=== PATIENT | male | born 1935 | race African-American/Black ===

== ENCOUNTER → 2016-05-28 | Outpatient (CLI) | payer MEDICARE, OTHER | LOC: OD 15:46 | PROVIDERS: ATTEND Family Medicine | DX: J20.9 Acute bronchitis, unspecified (principal) | CPT/HCPCS: 71020 ==

== ENCOUNTER 2016-07-13 19:49 | Observation (INO) | payer MEDICARE, OTHER ==
[2016-07-13] MEDS ORDERED: FENTANYL CITRATE INJ/PF 100 MCG/2 ML AMPUL ONE ×2 (20:57→21:08)
[2016-07-13] MEDS ORDERED: LIDOCAINE 1% INJ-PF (10 MG/ML) 30 ML SDV ONE (21:01)
[2016-07-13] MEDS ORDERED: NORMAL SALINE 1000 ML 1,000 ML IV ONE (21:31)
[2016-07-13] MEDS ORDERED: FENTANYL CITRATE INJ/PF 100 MCG/2 ML AMPUL IV ONE (21:31)
--- NOTE | 2016-07-13 21:32 | ER Document Report ---
[id number] Mode of Arrival: Ambulatory Information source: Patient Notes: 72-year-old male presents with a crush injury to left hand. Patient notes he was working under a car, is fell on his hand and crushed him for approximately 2 hours. Patient denies any other injuries TRAVEL OUTSIDE OF THE [place] IN LAST 30 DAYS: No - HPI Onset: Just prior to arrival Onset/Duration: Sudden Quality of pain: Sharp Severity: Moderate Pain Level: 3 Associated symptoms: Other Exacerbated by: Denies Relieved by: Denies Similar symptoms previously: No Recently seen / treated by doctor: No - Related Data Allergies/Adverse Reactions: Penicillins Allergy (Intermediate, Verified 07/13/16 20:14) Hives Past Medical History - Social History Smoking Status: Never Smoker Cigarette use (# per day): No Chew tobacco use (# tins/day): No Smoking Education Provided: No Family History: Reviewed & Not Pertinent - Past Medical History Cardiac Medical History: Reports: Hx Hypercholesterolemia Denies: Hx Heart Attack, Hx Hypertension Pulmonary Medical History: Denies: Hx Asthma Neurological Medical History: Denies: Hx Cerebrovascular Accident, Hx Seizures GI Medical History: Denies: Hx Hepatitis, Hx Hiatal Hernia, Hx Ulcer Infectious Medical History: Denies: Hx Hepatitis Past Surgical History: Reports: Hx Appendectomy. Denies: Hx Open Heart Surgery , Hx Pacemaker - Immunizations Hx Diphtheria, Pertussis, Tetanus Vaccination: Yes Review of Systems - Review of Systems Notes: REVIEW OF SYSTEMS: CONSTITUTIONAL : Denies fever, chills, or sweats. Denies recent illness. EENT: Denies eye, ear, throat, or mouth pain or symptoms. Denies nasal or sinus congestion or discharge. Denies throat, tongue, or mouth swelling or difficulty swallowing. CARDIOVASCULAR: Denies chest pain. Denies palpitations or racing or irregular heart beat. Denies ankle edema. RESPIRATORY: Denies cough, cold, or chest congestion. Denies shortness of breath, difficulty breathing, or wheezing. GASTROINTESTINAL: Denies abdominal pain or distention. Denies nausea, vomiting , or diarrhea. Denies blood in vomitus, stools, or per rectum. Denies black, tarry stools. Denies constipation. GENITOURINARY: Denies difficulty urinating, painful urination, burning, frequency, blood in urine, or discharge. MUSCULOSKELETAL: Left hand injury SKIN: Laceration to left hand with bleeding HEMATOLOGIC : Denies easy bruising or bleeding. LYMPHATIC: Denies swollen, enlarged glands. NEUROLOGICAL: Denies confusion or altered mental status. Denies passing out or loss of consciousness. Denies dizziness or lightheadedness. Denies headache. Denies weakness or paralysis or loss of use of either side. Denies problems with gait or speech. Denies sensory loss, numbness, or tingling. Denies seizures. PSYCHIATRIC: Denies anxiety or stress. Denies depression, suicidal ideation, or homicidal ideation. ALL OTHER SYSTEMS REVIEWED AND NEGATIVE. Dictation was performed using [employer] recognition software PHYSICAL EXAMINATION: GENERAL: Well-appearing, well-nourished and in moderate acute distress. HEAD: Atraumatic, normocephalic. EYES: Pupils equal round and reactive to light, extraocular movements intact, sclera anicteric, conjunctiva are normal. ENT: Nares patent, oropharynx clear without exudates. Moist mucous membranes. NECK: Normal range of motion, supple without lymphadenopathy LUNGS: Breath sounds clear to auscultation bilaterally and equal. No wheezes rales or rhonchi. HEART: Regular rate and rhythm without murmurs ABDOMEN: Soft, nontender, nondistended abdomen. No guarding, no rebound. No masses appreciated. 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 Normal speech, normal gait. Normal sensory, motor exams PSYCH: Normal mood, normal affect. SKIN: Warm, Dry, normal turgor, no rashes or lesions noted. Physical Exam - Vital signs Vitals: Temp Pulse Resp BP Pulse Ox 97.3 F 111 H 16 115/67 93 07/13/16 19:56 07/13/16 19:56 07/13/16 19:56 07/13/16 19:56 07/13/16 19:56 Course - Re-evaluation Re-evalutation: 07/13/16 21:31 Dr Villegas immediately consulted, he evaluated patient and cauterized bleeders and placed 8 sutures Area was loosely closed dressing placed dr fajardo called 07/13/16 21:37 Dr fajardo will admit to his service, will start ancef tetanus is up to date 07/13/16 23:37 Antibiotics IV fluids have been ordered CPK is pending patient in no distress at this time - Vital Signs Vital signs: Temp Pulse Resp BP Pulse Ox 97.3 F 111 H 16 115/67 93 07/13/16 19:56 07/13/16 19:56 07/13/16 19:56 07/13/16 19:56 07/13/16 19:56 - Laboratory Result Diagrams: 07/13/16 22:03 07/13/16 22:03 Laboratory results interpreted by me: 07/13/16 07/13/16 22:03 22:03 RDW 14.9 H Chloride 110 H - Diagnostic Test Radiology reviewed: Image reviewed, Reports reviewed - No fracture Discharge - Discharge Clinical Impression: Crushing injury of hand Qualifiers: Encounter type: initial encounter Laterality: left Qualified Code(s): S67.22XA - Crushing injury of left hand, initial encounter Laceration of hand Qualifiers: Encounter type: initial encounter Laterality: left Qualified Code(s): S61.412A - Laceration without foreign body of left hand, initial encounter Condition: Stable Disposition: ADMITTED OBSERVATION Admitting Provider: Betzaida Unit Admitted: Surgical Floor
[2016-07-13 22:09] LABS: ABSOLUTE BASOPHILS # (AUTO) 0.1 10^3/uL (0.0-0.2); ABSOLUTE LYMPHOCYTES (AUTO) 1.4 10^3/uL (0.5-4.7); ABSOLUTE MONOCYTES (AUTO) 0.7 10^3/uL (0.1-1.4); ABSOLUTE NEUT (AUTO) 7.7 10^3/uL (1.7-8.2); BASOPHILS % (AUTO) 0.5 % (0-2); EOSINOPHILS % (AUTO) 0.4 % (0-6); HEMATOCRIT 44.4 % (37.9-51.0); HEMOGLOBIN 14.6 g/dL (13.5-17.0); HGB HCT DIFFERENCE -0.6; LYMPHOCYTES % (AUTO) 14.1 % (13-45); MEAN CORPUSCULAR HEMOGLOBIN 27.8 pg (27.0-33.4); MEAN CORPUSCULAR HGB CONC 32.8 g/dL (32.0-36.0); MEAN CORPUSCULAR VOLUME 85 fl (80-97); MONOCYTES % (AUTO) 7.3 % (3-13); RED BLOOD COUNT 5.24 10^6/uL (4.35-5.55); RED CELL DISTRIBUTION WIDTH 14.9 % (11.5-14.0); SEGMENTED NEUTROPHILS % (AUTO) 77.7 % (42-78)
[2016-07-13 22:22] LABS: ALANINE AMINOTRANSFERASE 48 U/L (21-72); ALBUMIN 3.6 g/dL (3.5-5.0); ALKALINE PHOSPHATASE 51 U/L (38-126); ANION GAP 9 (5-19); ASPARTATE AMINO TRANSFERASE 33 U/L (17-59); BLOOD UREA NITROGEN 13 mg/dL (7-20); CALCIUM 9.4 mg/dL (8.4-10.2); CARBON DIOXIDE 25 mmol/L (22-30); CHLORIDE 110 mmol/L (98-107); CREATININE RESULT 1.16 mg/dL (0.52-1.25); GLUCOSE 94 mg/dL (75-110); POTASSIUM 4.1 mmol/L (3.6-5.0); SODIUM 143.5 mmol/L (137-145); TOTAL PROTEIN 6.6 g/dL (6.3-8.2)
[2016-07-13] MEDS ORDERED: CEFAZOLIN 1 GM/D5W RTU 50 ML IV ONE (22:59)
[2016-07-13] MEDS ORDERED: NORMAL SALINE 1000 ML 1,000 ML IV PRN (23:25)
[2016-07-14] MEDS ORDERED: HYDROMORPHONE HCL INJ/PF 2 MG/ML AMPULE IV PRN
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
[2016-07-14] MEDS ORDERED: RINGERS SOLUTION,LACTATED 1,000 ML IV PRN (02:41)
[2016-07-14] MEDS: MORPHINE SULFATE 10 MG/ML INJ IV PRN ×2 (02:48→07:24)
[2016-07-14 08:03] LABS: ABSOLUTE BASOPHILS # (AUTO) 0.1 10^3/uL (0.0-0.2); ABSOLUTE EOSINOPHILS # (AUTO) 0.1 10^3/uL (0.0-0.6); ABSOLUTE LYMPHOCYTES (AUTO) 1.9 10^3/uL (0.5-4.7); ABSOLUTE MONOCYTES (AUTO) 0.5 10^3/uL (0.1-1.4); ABSOLUTE NEUT (AUTO) 3.8 10^3/uL (1.7-8.2); BASOPHILS % (AUTO) 0.8 % (0-2); EOSINOPHILS % (AUTO) 1.1 % (0-6); HEMATOCRIT 41.6 % (37.9-51.0); HEMOGLOBIN 13.6 g/dL (13.5-17.0); HGB HCT DIFFERENCE -0.8; LYMPHOCYTES % (AUTO) 29.5 % (13-45); MEAN CORPUSCULAR HEMOGLOBIN 27.9 pg (27.0-33.4); MEAN CORPUSCULAR HGB CONC 32.7 g/dL (32.0-36.0); MEAN CORPUSCULAR VOLUME 85 fl (80-97); MONOCYTES % (AUTO) 8.6 % (3-13); RED BLOOD COUNT 4.88 10^6/uL (4.35-5.55); RED CELL DISTRIBUTION WIDTH 14.9 % (11.5-14.0); WHITE BLOOD COUNT 6.3 10^3/uL (4.0-10.5)
[2016-07-14 08:07] LABS: PROTHROMBIN TIME 14.4 SEC (11.4-15.4)
[2016-07-14 08:08] LABS: PARTIAL THROMBOPLASTIN TIME 35.8 SEC (23.5-35.8)
[2016-07-14 08:17] LABS: ANION GAP 7 (5-19); BLOOD UREA NITROGEN 12 mg/dL (7-20); CALCIUM 8.9 mg/dL (8.4-10.2); CARBON DIOXIDE 25 mmol/L (22-30); CHLORIDE 111 mmol/L (98-107); CREATININE RESULT 1.13 mg/dL (0.52-1.25); GLUCOSE 73 mg/dL (75-110); POTASSIUM 4.2 mmol/L (3.6-5.0); SODIUM 143.1 mmol/L (137-145)
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
[2016-07-14] MEDS ORDERED: FENTANYL CITRATE INJ/PF 100 MCG/2 ML AMPUL ONE (09:28)
[2016-07-14] MEDS ORDERED: PROPOFOL INJ 200 MG/20 ML VIAL IV ONE (09:28)
[2016-07-14] MEDS ORDERED: MIDAZOLAM 2 MG/2 ML INJ ONE (09:28)
[2016-07-14] MEDS ORDERED: MORPHINE SULFATE 10 MG/ML INJ ONE (09:29)
[2016-07-14] MEDS ORDERED: CEFAZOLIN INJ 1 GM VIAL ONE (09:59)
[2016-07-14] MEDS ORDERED: BUPIVACAINE HCL 0.25 % INJ/PF (2.5 MG/1 ML) 30 ML VIAL ONE (10:00)
[2016-07-14] MEDS ORDERED: MORPHINE SULFATE 10 MG/ML INJ IV PRN (10:10)
[2016-07-14] MEDS ORDERED: FENTANYL CITRATE INJ/PF 100 MCG/2 ML AMPUL IV PRN ×3 (10:10)
[2016-07-14] MEDS ORDERED: ONDANSETRON HCL INJ/PF 4 MG/2 ML SDV IV PRN (10:10)
[2016-07-14] MEDS ORDERED: DIPHENHYDRAMINE HCL 50 MG/ML VIAL IV PRN (10:10)
--- NOTE | 2016-07-14 10:21 | Operative Report ---
Operative Report DATE OF SURGERY: 07/14/16 PREOPERATIVE DIAGNOSIS: Complex left hand laceration OPERATION: Irrigation debridement of wound. Neuro lysis of left thumb ulnar neurovascular bundle and right index radial neurovascular bundle. Delayed primary closure. SURGEON: CASTRO LIM ANESTHESIA: GA TISSUE REMOVED OR ALTERED: No specimen. ESTIMATED BLOOD LOSS: minimal PROCEDURE: The patient presented to the emergency room with a bleeding wound which was cauterized. Preoperative concern was that this represented the digital neurovascular bundle and then cauterization was of the vascular, neurologic structures within. With the patient supine on the operative table left hand. His pre-scrubbed because its grossly contaminated with dirt. Subsequent prepped and draped in a sterile fashion. The wound is examined. Approximate 4 inch longitudinal incision that runs along the webspace between the thumb and the index finger. Is largely a degloving injury over the index aspect of this wound. The wound is debrided of all nonviable and discolored tissue. The radial neurovascular bundle to the index finger is identified and traced on either side of the lumbrical and found to be intact. Likewise, the neurovascular bundle to the ulnar aspect of the thumb is identified and found to be intact. At this point. Wound is danna irrigated again. A quarter-inch iodoform gauze was placed deep into the webspace. The skin is then reapproximated using interrupted 3-0 nylon suture. Dressing is applied and the patient's returned to the PACU in satisfactory condition.
--- NOTE | 2016-07-14 10:43 | EKG REPORT ---
SEVERITY:- OTHERWISE NORMAL ECG - SINUS RHYTHM LOW VOLTAGE IN FRONTAL LEADS : Confirmed by: Jessica Deluna 14-Jul-2016 10:43:27
--- NOTE | 2016-07-14 10:44 | EKG REPORT ---
SEVERITY:- OTHERWISE NORMAL ECG - SINUS RHYTHM LOW VOLTAGE IN FRONTAL LEADS : Confirmed by: Jessica Deluna 14-Jul-2016 10:43:47
[2016-07-14] MEDS: OXYCODONE HCL IR 5 MG TABLET PO PRN ×2 (15:15→21:11)
[2016-07-14] MEDS: CEFAZOLIN 2 GM/D5W RTU 2 GM/50 ML RTUPB IV SCH (16:40)
[2016-07-15] MEDS: CEFAZOLIN 2 GM/D5W RTU 2 GM/50 ML RTUPB IV SCH ×2 (03:01→09:32)
[2016-07-15] MEDS: OXYCODONE HCL IR 5 MG TABLET PO PRN ×2 (03:01→09:34)
--- NOTE | 2016-07-15 07:16 | Physician Advisory Note ---
Physician Advisor ProgressNote .: Pursuant to the plan for [facility], I have reviewed the medical record for this patient. Physician Advisor Statement: Status: 72yo with crush/complex lac injury to non-dominant Lt hand, degloving type over index finger area, requiring 8 sutures + cautery to control bleeding in ED 07/13 PM, but wound still grossly contaminated w/dirt, needed formal irrigation debridement in OR, which was done promptly on 07/14 AM. Pt given LR @150, Ancef IV q8h, oxycodone prn. Since then, pt w/recurrent tachycardia at times as high as 103. If attending documentation explicitly documents the clinical reasons pt could not be safely d/c'd on 07/14 PM (concerns for hand infection risks high?, needing monitoring for viability of fingers?, unstable HR?, ...), but rather requiring a 2nd MN of hospital care & monitoring to protect pt's health, safety , & medical condition (as opposed to, for example, keeping pt a 2nd MN for reasons of pt/physician convenience - which would be highly unlikely by this dr but auditors won't assume so), pt may qualify for change to Inpt status this AM , whether or not he is then able to be d/c'd home later today. Thanks for your help with documentation accuracy/specificity improvement! Pamela Rainey MD [facility] Physician Advisor, Fellow of Hospital Medicine
[2016-07-15 13:52] VITALS: BP 118/82
== END 2016-07-15 14:00 | disposition home or self-care (01) ==
LOC: ER 19:49 → EH 22:56 → UNDOADMOB 22:56 → EH 07-14 01:47 → 4N 07-14 01:47 → EH 07-14 06:02
PROVIDERS: ADMIT Orthopaedic Surgery; ATTEND Orthopaedic Surgery
PROC: 0JBJ0ZZ Excision of Right Hand Subcutaneous Tissue and Fascia, Open Approach (ICD-10-PCS; principal; 2016-07-13)
PROC: 0JQJ0ZZ Repair Right Hand Subcutaneous Tissue and Fascia, Open Approach (ICD-10-PCS; 2016-07-13)
PROC: 3E033GC Introduction of Other Therapeutic Substance into Peripheral Vein, Percutaneous Approach (ICD-10-PCS; 2016-07-13)
PROC: 3E033GC Introduction of Other Therapeutic Substance into Peripheral Vein, Percutaneous Approach (ICD-10-PCS; 2016-07-13)
PROC: 3E033GC Introduction of Other Therapeutic Substance into Peripheral Vein, Percutaneous Approach (ICD-10-PCS; 2016-07-13)
DX: S67.22XA Crushing injury of left hand, initial encounter (principal); S61.412A Laceration without foreign body of left hand, initial encounter; W20.8XXA Other cause of strike by thrown, projected or falling object, initial encounter; E78.5 Hyperlipidemia, unspecified
CPT/HCPCS: 96376; 99285; 96361; 96375; 96365; 36415 ×2; 82550; 85025 ×2; 85610; 85730; 80048; 80053; 71010; 73130; 73110; 93005; 93010; 11043; 13131; J2250; J0690 ×4; J3010 ×2; J3490; J2270; J1170; J7030; J7120; J2704; A9270 ×2; 00400; G0378

== ENCOUNTER → 2016-12-26 | Outpatient (CLI) | payer MEDICARE, OTHER ==
--- NOTE | 2016-12-26 15:58 | RADIOLOGY REPORT (SQ) ---
EXAM DESCRIPTION: CHEST PA/LATERAL COMPLETED DATE/TIME: 12/26/2016 12:18 pm REASON FOR STUDY: HYPERLIPIDEMIA, UNSPECIFIED COMPARISON: 07/14/2016 EXAM PARAMETERS: NUMBER OF VIEWS: two views TECHNIQUE: Digital Frontal and Lateral radiographic views of the chest acquired. RADIATION DOSE: NA LIMITATIONS: none FINDINGS: LUNGS AND PLEURA: No opacities, masses or pneumothorax. No pleural effusion. MEDIASTINUM AND HILAR STRUCTURES: No masses or contour abnormalities. HEART AND VASCULAR STRUCTURES: Heart normal size. No evidence for failure. BONES: No acute findings. HARDWARE: None in the chest. OTHER: No other significant finding. IMPRESSION: NO SIGNIFICANT RADIOGRAPHIC FINDING IN THE CHEST. TECHNICAL DOCUMENTATION: JOB ID: [id number] [employer]- All Rights Reserved
== END ==
LOC: OD 11:46
PROVIDERS: ATTEND Family Medicine
DX: E78.5 Hyperlipidemia, unspecified (principal)
CPT/HCPCS: 71020

== ENCOUNTER → 2017-07-04 | Outpatient (CLI) | payer MEDICARE, OTHER ==
--- NOTE | 2017-07-04 09:37 | RADIOLOGY REPORT (SQ) ---
EXAM DESCRIPTION: KUB COMPLETED DATE/TIME: 07/04/2017 9:24 am REASON FOR STUDY: DYSURIA COMPARISON: None. NUMBER OF VIEWS: One view. TECHNIQUE: Supine radiographic image of the abdomen acquired. LIMITATIONS: None. FINDINGS: BOWEL GAS PATTERN: Normal bowel gas pattern. No dilated loops. CALCIFICATIONS: 3 mm calcified density in the midline overlying the urinary bladder. No renal calcul i identified. SOFT TISSUES: No gross mass or suggestion of organomegaly. HARDWARE: None. BONES: No bone lesions or fracture. OTHER: No other significant finding. IMPRESSION: Possible small bladder stone.
== END ==
LOC: OD 09:09
PROVIDERS: ATTEND Physician Assistant
DX: R30.0 Dysuria (principal)
CPT/HCPCS: 74018

== ENCOUNTER → 2017-07-30 | Outpatient (CLI) | payer MEDICARE, OTHER ==
--- NOTE | 2017-07-30 10:07 | RADIOLOGY REPORT (SQ) ---
EXAM DESCRIPTION: CHEST PA/LATERAL COMPLETED DATE/TIME: 07/30/2017 8:24 am REASON FOR STUDY: COUGH COMPARISON: 2017. TECHNIQUE: Frontal and lateral radiographic views of the chest acquired. NUMBER OF VIEWS: Two view. LIMITATIONS: None. FINDINGS: LUNGS AND PLEURA: Slight chronic hyperinflation but no developing opacities. No pneumotho rax. No evidence of failure or pneumonia. MEDIASTINUM AND HILAR STRUCTURES: No masses or contour abnormalities. HEART AND VASCULAR STRUCTURES: Heart normal size. No evidence for failure. BONES: No acute findings. HARDWARE: None in the chest. OTHER: No other significant finding. IMPRESSION: Stable chest is without acute cardiopulmonary disease or suspicious opacities. No evide nce of failure or pneumonia. TECHNICAL DOCUMENTATION: JOB ID: [id number] [employer]- All Rights Reserved Reading location - IP/workstation name: [email or web address]
--- NOTE | 2017-07-30 13:34 | RADIOLOGY REPORT (SQ) ---
EXAM DESCRIPTION: KUB COMPLETED DATE/TIME: 07/30/2017 10:21 am REASON FOR STUDY: CALCULUS IN BLADDER R05 COUGH N21.0 CALCULUS IN BLADDER COMPARISON: 07/04/2017. NUMBER OF VIEWS: One view. TECHNIQUE: AP supine digital radiograph of the abdomen. LIMITATIONS: None. FINDINGS: CALCIFICATIONS: RIGHT KIDNEY: None. RIGHT URETER: No calcifications in the expected location of the ureter. LEFT KIDNEY: None. LEFT URETER: No calcifications in the expected location of the ureter. BLADDER: Previously seen small calcification in the mid pelvis no longer present. Incidental calcifi ed phleboliths. BOWEL GAS PATTERN AND SOFT TISSUES: Normal bowel gas pattern. No masses or organomegaly. BONES: No acute fracture. No worrisome bone lesions. OTHER: None. IMPRESSION: NO CALCIFICATIONS IDENTIFIED IN THE EXPECTED LOCATION OF THE URINARY SYSTEM. TECHNICAL DOCUMENTATION: JOB ID: [id number] [employer]- All Rights Reserved Reading location - IP/workstation name: [email or web address]
== END ==
LOC: OD 08:17
PROVIDERS: ATTEND Physician Assistant
DX: N21.0 Calculus in bladder (principal); R05 Cough
CPT/HCPCS: 71046; 74018

== ENCOUNTER 2017-11-05 09:21 | Observation (INO) | payer MEDICARE, OTHER ==
[2017-10-29 11:13] LABS: HEMATOCRIT 47.1 % (37.9-51.0); HEMOGLOBIN 15.5 g/dL (13.5-17.0); MEAN CORPUSCULAR HGB CONC 32.9 g/dL (32.0-36.0); MEAN CORPUSCULAR VOLUME 85 fl (80-97); PLATELET COUNT 198 10^3/uL (150-450); RED BLOOD COUNT 5.53 10^6/uL (4.35-5.55); RED CELL DISTRIBUTION WIDTH 14.7 % (11.5-14.0); WHITE BLOOD COUNT 5.1 10^3/uL (4.0-10.5)
[2017-10-29 11:36] LABS: ANION GAP 10 (5-19); BLOOD UREA NITROGEN 13 mg/dL (7-20); CALCIUM 10.1 mg/dL (8.4-10.2); CARBON DIOXIDE 29 mmol/L (22-30); CHLORIDE 106 mmol/L (98-107); GLUCOSE 87 mg/dL (75-110); POTASSIUM 5.1 mmol/L (3.6-5.0); SODIUM 145.1 mmol/L (137-145)
--- NOTE | 2017-10-29 22:38 | EKG REPORT ---
SEVERITY:- OTHERWISE NORMAL ECG - SINUS RHYTHM LOW VOLTAGE IN FRONTAL LEADS : Confirmed by: Candice Adams MD 29-Oct-2017 22:37:16
[~2017-11-05 09:21] MED LIST: AMPICILLIN SODIUM/SULBACTAM NA 3 GM in NORMAL SALINE 100 ML IV SCH; DEXTROSE 5%-LACTATED RINGERS 1,000 ML IV PRN; GENTAMICIN SULFATE 200 MG in DEXTROSE 5%-WATER 100 ML IV PRN; LACTATED RINGERS 1000 ML IV PRN; LIDOCAINE 0.5% INJ-PF (5 MG/ML) 50 ML SDV SUBCUT PRN; VANCOMYCIN HCL 1,000 MG in DEXTROSE 5%-WATER 250 ML IV PRN
[2017-11-05] MEDS ORDERED: FENTANYL CITRATE INJ/PF 100 MCG/2 ML AMPUL ONE (11:22)
[2017-11-05] MEDS ORDERED: PROPOFOL INJ 200 MG/20 ML VIAL IV ONE (11:22)
[2017-11-05] MEDS ORDERED: MIDAZOLAM 2 MG/2 ML INJ ONE (11:22)
[2017-11-05] MEDS ORDERED: BUPIVACAINE HCL 0.5%-EPI 1:200000 INJ/PF 30 ML VIAL ONE (11:28)
[2017-11-05] MEDS ORDERED: GENTAMICIN SULFATE INJ 80 MG/2 ML VIAL ONE (11:28)
[2017-11-05] MEDS ORDERED: BACITRACIN INJ 50,000 UNIT VIAL ONE (11:38)
[2017-11-05] MEDS ORDERED: DEXAMETHASONE SOD PHOSPHATE INJ 4 MG/1 ML VIAL ONE (13:19)
[2017-11-05] MEDS ORDERED: PHENYLEPHRINE HCL INJ/PF 10 MG/1 ML SDV ONE (13:19)
[2017-11-05] MEDS ORDERED: ONDANSETRON HCL INJ/PF 4 MG/2 ML SDV ONE (13:19)
[2017-11-05] MEDS ORDERED: GLYCOPYRROLATE 1 MG/5 ML SYRINGE ONE (13:19)
[2017-11-05] MEDS: FENTANYL CITRATE INJ/PF 100 MCG/2 ML AMPUL ONE ×2 (15:30→15:35)
[2017-11-05] MEDS ORDERED: ACETAMINOPHEN 325 MG TABLET PO PRN (15:43)
[2017-11-05] MEDS ORDERED: OXYCODONE-ACETAMINOPHEN 5-325 MG TABLET PO PRN ×2 (15:45→16:10)
[2017-11-05] MEDS ORDERED: DEXTROSE 5%-1/2 NORMAL SALINE 1,000 ML IV PRN (15:47)
[2017-11-05] MEDS ORDERED: OXYCODONE HCL IR 5 MG TABLET PO PRN (16:10)
[2017-11-05] MEDS ORDERED: DIPHENHYDRAMINE HCL 50 MG/ML VIAL IV PRN (16:15)
[2017-11-05] MEDS ORDERED: ONDANSETRON HCL INJ/PF 4 MG/2 ML SDV IV PRN (16:15)
[2017-11-05] MEDS ORDERED: FENTANYL CITRATE INJ/PF 100 MCG/2 ML AMPUL IV PRN ×3 (16:15)
--- NOTE | 2017-11-05 18:24 | Operative Report ---
Operative Report DATE OF SURGERY: 11/05/17 POSTOPERATIVE DIAGNOSIS: organic erectile dysfunction OPERATION: insertion 3-piece inflatable penile prosthesis SURGEON: Dominick ANESTHESIA: GA TISSUE REMOVED OR ALTERED: none COMPLICATIONS: none ESTIMATED BLOOD LOSS: minimal INTRAOPERATIVE FINDINGS: erectile dysfunction PROCEDURE: After Oneal was identified in the preop holding area, he was brought to the OR. A time out was performed where the correct patient and procedure was confirmed. He was then given general anesthesia. He was then prepped with Chloraprep and draped in the routine sterile manner. A 14 [place] law catheter was inserted and 10cc was instilled in the balloon.\ Next, a 3 cm incision was made in the median raphe of the scrotum and dissection was carried out with blunt and sharp dissection. The left corporal body was identified. Marking autures of 2-0 PDS were placed on either side of the proposed incision and then an 11 bladed knife was used to incise through the tunica albuginea. The corporal space was dilated with Hegar dilators distally and proximally from 8FR to 14 Fr. Measurements were taken and were 12 cm distally and 8 cm proximally. The corporal space was then irrigated with antibiotic irrigation. The other side was done in a similar manner. There was some scarring in the right corporal space, which required additional dilation. The distal and proximal measurements on the right side were the same. An 18 cm cylinder with a 2 cm rear tip editor producer and a 65cc resevior and pump were prepped according to manufactor's specifications. A Lucy tool was then used to guide placement of the cylinders such that the Hussein needle exited from the middle of the glans penis on each side. The distal end was positioned without tension or buckling. An artificial erection was then created using a surogate resevior, and the erection showed good placment of the cylinders with symmetrical expansion. The previously placed 2-0 PDS sutures were tied to close the corporal incisions. A small incision was made in the suprapubic area and dissection was carried down to the level of the fascia with blunt and sharp dissection. The fascia was opened in a vertical direction. Dissection was carried out beneath the rectus muscle in the extraperineal space on the left side to accomodate the resevior. A total of 60 cc of sterile saline was used to inflate the reservior. There wasn't any back pressure. The fascial incision was closed with interrupted 1-0 PDS. The tubing from the reservior was passed from the upper incision through the inguinal canal into the scrotum with a tonsil hemostat. Excess tubing was removed and quick connectors were used to join the reservior tubing to the pump. The pump was then positioned in a dependant position in the lower right scrotal sac. The deflate button was positioned anteriorly. The tubing was covered with surrounding tissue that was tacked in place with interrupted 3-0 chromic sutures. The scrotal incision was closed with a running suture of 4-0 chromic. The suprapubic incision was closed with a subcuticular suture of 4-0 vicryl. Dermabond was applied to the incisions and mikhail dressing was used to wrap the penis. Mesh underware was placed over fluff dressings. All needle, sponge, and instrument counts were normal
[2017-11-05] MEDS ORDERED: VANCOMYCIN HCL 1,000 MG in DEXTROSE 5%-WATER 250 ML IV ONE (23:00)
[2017-11-06] MEDS ORDERED: MORPHINE SULFATE 10 MG/ML INJ ONE (07:30)
--- NOTE | 2017-11-06 07:56 | PDOC DISCHARGE SUMMARY ---
General - Admit/Disc Date/PCP Admission Date/Primary Care Provider: BRYAN DE LEÓN MD Discharge Date: 11/06/17 - Additional Information Discharge Diet: Regular Discharge Activity: No Driving, No Lifting Over 10 Pounds, No tub bath - limited activity over the next week, wear supportive briefs, ice pack to scrotum x 48 hours, take a stool softener daily,, Other - limited activity over the next 7 days. take a stool softener. may shower, wear supportive briefs, ice pack to scrotum for the next 48 hours Home Medications: Acyclovir [Acyclovir 400 mg Tablet] 400 mg PO DAILY 07/14/16 Aspirin [Aspirin 81 mg Chewable Tablet] 81 mg PO DAILY 07/14/16 Ezetimibe [Zetia] 10 mg PO DAILY 07/14/16 Sildenafil Citrate [Viagra] 100 mg PO DAILYP PRN 07/14/16 History of Present Illness Patient complains of: erectile dysfunction History of Present Illness: JUANITA YANG is a 82 year old male Mr. Yang had insertion of an inflatable penile prosthesis on the day of admission. He is afebrile and tolerating a normal diet. He will be discharged for further follow-up as an outpatient. I advised him to limit activity over the next week and to wear supportive briefs. I advised ice pack to the scrotum over the next 48 hours. I also advised him to take a stool softener. I will see him again in 4 weeks and instruct him how to use his prosthesis. Hospital Course Hospital Course: He had an uncomplicated postoperative course. He will be discharged for further follow-up as an outpatient. Physical Exam Vital Signs: Temp Pulse Resp BP Pulse Ox 98.2 F 82 18 103/67 93 11/05/17 22:40 11/05/17 22:40 11/05/17 22:40 11/05/17 22:40 11/05/17 22:40 Intake & Output 11/05/17 11/06/17 11/07/17 06:59 06:59 06:59 Intake Total 2736 Output Total 800 Balance 1936 Weight 70.2 kg General appearance: PRESENT: mild distress Exam: His penis appears normal postop. He does not have significant scrotal swelling. There is no active bleeding or sign of infection. Results Laboratory Results: 10/29/17 10:43 11/05/17 10:07 11/05/17 10:07 Potassium 4.6 Qualifiers - * PATIENT BEING DISCHARGED WITH ANY OF THE FOLLOWING DIAGNOSIS: No VTE patient discharged on overlapping Therapy?: No Reason(s) for not prescribing Overlap Therapy:: Not indicated - risk of post op bleeding Plan Discharge Plan: He can go home. He may resume a normal diet. Limit activity for the next week. He may resume his home meds. Time Spent: Less than 30 Minutes
[2017-11-06 08:14] VITALS: BP 99/60
[2017-11-06] MEDS ORDERED: ACYCLOVIR 200 MG CAPSULE PO SCH (10:00)
[2017-11-06] MEDS ORDERED: EZETIMIBE 10 MG TABLET PO SCH (10:00)
== END 2017-11-06 10:35 | disposition home or self-care (01) ==
LOC: OROUT 09:21 → INOR 09:22 → 4S 17:52 → OROUT 11-06 11:04
PROVIDERS: ADMIT Urology; ATTEND Urology
PROC: 0VUS0JZ Supplement Penis with Synthetic Substitute, Open Approach (ICD-10-PCS; principal; 2017-11-05 12:00)
DX: N52.9 Male erectile dysfunction, unspecified (principal); Z87.891 Personal history of nicotine dependence; Z79.82 Long term (current) use of aspirin; Z79.899 Other long term (current) drug therapy
CPT/HCPCS: 54405; C1813; 36415; 80048; 84132; 85027; 93005; 93010; 938; G0378; G0379; J1100; J1580; J2250; J2270; J2370; J2405; J2704; J3010; J3370; J3490; J7060

== ENCOUNTER 2020-04-09 14:37 | Inpatient (IN) | payer MEDICARE, OTHER ==
--- NOTE | 2020-04-09 14:53 | ER Document Report ---
ED Medical Screen (RME) - General Stated Complaint: CONGESTION, FEVER Time Seen by Provider: 04/09/20 14:46 Primary Care Provider: BRYAN DE LEÓN MD [Primary Care Provider] - Follow up as needed Mode of Arrival: Ambulatory Information source: Patient Notes: HPI; 84-year-old male past medical history significant for hypertension presents to the emergency room complaining of a cough, generalized weakness, subjective fever for the past 3 days. Denies chest pain or shortness of breath. No nausea, vomiting, no diarrhea. No known ill contacts. No medications for symptoms. No COVID-19 exposure. PE: Alert and oriented x3. Lungs: Clear to auscultation without rales, rhonchi, wheezes. Heart: Tachycardic without murmurs, rubs, gallops. I have greeted and performed a rapid initial assessment of this patient. A comprehensive ED assessment and evaluation of the patient, analysis of test results and completion of the medical decision making process will be conducted by additional ED providers. I have specifically instructed the patient or family members with the patient to immediately return to any nursing staff should anything change in the patient's condition or with their chief complaint. TRAVEL OUTSIDE OF THE [place] IN LAST 30 DAYS: No - Related Data Allergies/Adverse Reactions: Penicillins Allergy (Intermediate, Verified 11/05/17 09:50) Hives Past Medical History - Past Medical History Cardiac Medical History: Reports: Hx Coronary Artery Disease - HIGH CHOLESTEROL, Hx Hypercholesterolemia Denies: Hx Congestive Heart Failure, Hx Heart Attack, Hx Hypertension Pulmonary Medical History: Denies: Hx Asthma, Hx Bronchitis, Hx COPD, Hx Pneumonia, Hx Tuberculosis Neurological Medical History: Denies: Hx Cerebrovascular Accident, Hx Seizures, Hx Parkinson's Disease Renal/ Medical History: Denies: Hx Benign Prostatic Hyperplasia, Hx End Stage Renal Disease, Hx Kidney Stones GI Medical History: Denies: Hx Cirrhosis, Hx Gastroesophageal Reflux Disease, Hx Hepatitis, Hx Hiatal Hernia, Hx Ulcer Musculoskeltal Medical History: Denies Hx Arthritis, Denies Hx Multiple Sclerosis Psychiatric Medical History: Denies: Hx Bipolar Disorder, Hx Depression, Hx Schizophrenia Infectious Medical History: Denies: Hx Hepatitis Past Surgical History: Reports: Hx Appendectomy. Denies: Hx Open Heart Surgery, Hx Pacemaker - Immunizations Hx Diphtheria, Pertussis, Tetanus Vaccination: Yes Physical Exam - Vital signs Vitals: Temp Pulse Resp BP Pulse Ox 98.9 F 108 H 18 126/89 H 92 04/09/20 14:43 04/09/20 14:43 04/09/20 14:43 04/09/20 14:43 04/09/20 14:43 Course - Vital Signs Vital signs: Temp Pulse Resp BP Pulse Ox 98.9 F 108 H 18 126/89 H 92 04/09/20 14:43 04/09/20 14:43 04/09/20 14:43 04/09/20 14:43 04/09/20 14:43 Doctor's Discharge - Discharge Referrals: BRYAN DE LEÓN MD [Primary Care Provider] - Follow up as needed
[2020-04-09 15:45] LABS: ABSOLUTE LYMPHOCYTES (AUTO) 0.7 10^3/uL (0.5-4.7); ABSOLUTE MONOCYTES (AUTO) 0.5 10^3/uL (0.1-1.4); BASOPHILS % (AUTO) 0.6 % (0-2); HEMATOCRIT 47.6 % (37.9-51.0); HEMOGLOBIN 15.8 g/dL (13.5-17.0); LYMPHOCYTES % (AUTO) 16.9 % (13-45); MEAN CORPUSCULAR HEMOGLOBIN 27.8 pg (27.0-33.4); MEAN CORPUSCULAR HGB CONC 33.2 g/dL (32.0-36.0); MEAN CORPUSCULAR VOLUME 84 fl (80-97); MONOCYTES % (AUTO) 12.2 % (3-13); PLATELET COUNT 151 10^3/uL (150-450); RED BLOOD COUNT 5.68 10^6/uL (4.35-5.55); RED CELL DISTRIBUTION WIDTH 13.8 % (11.5-14.0); SEGMENTED NEUTROPHILS % (AUTO) 70.3 % (42-78); TOTAL CELLS COUNTED % (AUTO) 100 %; WHITE BLOOD COUNT 4.2 10^3/uL (4.0-10.5)
--- NOTE | 2020-04-09 15:51 | RADIOLOGY REPORT (SQ) ---
EXAM DESCRIPTION: CHEST SINGLE VIEW IMAGES COMPLETED DATE/TIME: 04/09/2020 3:06 pm REASON FOR STUDY: cough COMPARISON: 07/31/2015 EXAM PARAMETERS: NUMBER OF VIEWS: One view. TECHNIQUE: Single frontal radiographic view of the chest acquired. RADIATION DOSE: NA LIMITATIONS: None. FINDINGS: LUNGS AND PLEURA: There appears to be a degree of atelectasis versus consolidation of the right upper lobe and left lower lobe. No focal consolidation, pleural effusion, or pneumothorax. MEDIASTINUM AND HILAR STRUCTURES: No masses. Contour normal. HEART AND VASCULAR STRUCTURES: Heart normal in size. Normal vasculature. BONES: No acute findings. HARDWARE: None in the chest. OTHER: No other significant finding. IMPRESSION: In the appropriate clinical setting, findings are consistent with developing multi lobar pneumonia. TECHNICAL DOCUMENTATION: JOB ID: [id number] 2010 [employer]- All Rights Reserved Reading location - IP/workstation name: [email or web address]
[2020-04-09 15:54] LABS: APPEARANCE,URINE SLIGHTLY-CLOUDY; BILIRUBIN,URINE NEGATIVE (NEGATIVE); COLOR,URINE YELLOW; GLUCOSE, URINE NEGATIVE (NEGATIVE); KETONES,URINE 20 mg/dL (NEGATIVE); LEUKOCYTE ESTERASE,URINE NEGATIVE (NEGATIVE); NITRITE,URINE NEGATIVE (NEGATIVE); PROTEIN,URINE 100 mg/dL (NEGATIVE); URINE SPECIFIC GRAVITY 1.023; UROBILINOGEN,URINE NEGATIVE mg/dL (<2.0)
[2020-04-09 16:05] LABS: ALBUMIN 3.8 g/dL (3.5-5.0); ALKALINE PHOSPHATASE 49 U/L (38-126); ANION GAP 9 (5-19); ASPARTATE AMINO TRANSFERASE 72 U/L (17-59); BILIRUBIN,DIRECT 0.2 mg/dL (0.0-0.4); BLOOD UREA NITROGEN 12 mg/dL (7-20); CALCIUM 8.6 mg/dL (8.4-10.2); CARBON DIOXIDE 29 mmol/L (22-30); CHLORIDE 96 mmol/L (98-107); GLUCOSE 95 mg/dL (75-110); POTASSIUM 4.5 mmol/L (3.6-5.0)
[2020-04-09] MEDS ORDERED: ACETAMINOPHEN 325 MG TABLET PO ONE (18:24)
--- NOTE | 2020-04-09 18:29 | ER Document Report ---
ED General - General Chief Complaint: Congestion Stated Complaint: CONGESTION, FEVER Time Seen by Provider: 04/09/20 14:46 Primary Care Provider: BRYAN DE LEÓN MD [Primary Care Provider] - Follow up as needed Mode of Arrival: Ambulatory TRAVEL OUTSIDE OF THE [place] IN LAST 30 DAYS: No - HPI Notes: Patient is an 84-year-old male presents emergency department for evaluation of fever, cough, shortness of breath. Symptoms of been ongoing for about a week. He is also had multiple episodes of diarrhea, he states for today. He denies any anosmia, has had no nasal congestion. Dry and hacking cough. He denies any pain. His is recently diagnosed with Covid pneumonia. - Related Data Allergies/Adverse Reactions: Penicillins Allergy (Intermediate, Verified 04/09/20 16:49) Hives Home Medications: asa, viagara, montelukast, tobradex, flonase, atorvastatin Past Medical History - General Information source: Patient - Social History Smoking Status: Former Smoker Chew tobacco use (# tins/day): No Frequency of alcohol use: None Drug Abuse: None Family History: Reviewed & Not Pertinent Patient has homicidal ideation: No - Past Medical History Cardiac Medical History: Reports: Hx Hypercholesterolemia Denies: Hx Congestive Heart Failure, Hx Heart Attack, Hx Hypertension Pulmonary Medical History: Denies: Hx Asthma, Hx Bronchitis, Hx COPD, Hx Pneumonia, Hx Tuberculosis Neurological Medical History: Denies: Hx Cerebrovascular Accident, Hx Seizures, Hx Parkinson's Disease Renal/ Medical History: Denies: Hx Benign Prostatic Hyperplasia, Hx End Stage Renal Disease, Hx Kidney Stones GI Medical History: Denies: Hx Cirrhosis, Hx Gastroesophageal Reflux Disease, Hx Hepatitis, Hx Hiatal Hernia, Hx Ulcer Musculoskeletal Medical History: Denies Hx Arthritis, Denies Hx Multiple S clerosis Psychiatric Medical History: Denies: Hx Bipolar Disorder, Hx Depression, Hx Schizophrenia Infectious Medical History: Denies: Hx Hepatitis Past Surgical History: Reports: Hx Appendectomy. Denies: Hx Open Heart Surgery, Hx Pacemaker - Immunizations Hx Diphtheria, Pertussis, Tetanus Vaccination: Yes Hx Pneumococcal Vaccination: 05/26/16 Review of Systems - Review of Systems Constitutional: See HPI EENT: See HPI Cardiovascular: No symptoms reported Respiratory: See HPI Gastrointestinal: See HPI Genitourinary: No symptoms reported Musculoskeletal: No symptoms reported Skin: No symptoms reported Neurological/Psychological: No symptoms reported -: Yes All other systems reviewed and negative Physical Exam - Vital signs Vitals: Temp Pulse Resp BP Pulse Ox 98.9 F 108 H 18 126/89 H 92 04/09/20 14:43 04/09/20 14:43 04/09/20 14:43 04/09/20 14:43 04/09/20 14:43 - Notes Notes: Vital signs reviewed, please refer to chart. Head is normocephalic, atraumatic. Pupils equal round, reactive to light. Neck is supple without meningismus. Heart is regular rate and rhythm. Lungs reveal diminished breath sounds but no wheezes, rales, rhonchi. Abdomen is soft, nontender, normoactive bowel sounds throughout. Extremities without cyanosis, clubbing. Posterior calves are nontender. Peripheral pulses are equal. Skin is warm and dry. Patient is awake, alert, neurological exam is nonfocal. Course - Re-evaluation Re-evalutation: 04/09/20 18:25 Patient presents emergency department for evaluation. He is brought in via triage, had laboratory investigations as ordered. Chest x-ray reveals findings consistent with multilobar pneumonia. I actually did have the Provigil taken care of this man's earlier today. She is in fact Covid positive. I strongly suspect this in this patient. I will speak to primary care about admission. 04/09/20 18:31 Dr. Valdivia, on for Dr. De León, will admit the patient for further care. - Vital Signs Vital signs: Temp Pulse Resp BP Pulse Ox 98.9 F 108 H 18 126/89 H 92 04/09/20 14:43 04/09/20 14:43 04/09/20 14:43 04/09/20 14:43 04/09/20 14:43 - Laboratory Result Diagrams: 04/09/20 15:25 04/09/20 15:25 Laboratory results interpreted by me: 04/09/20 04/09/20 04/09/20 15:25 15:25 15:25 RBC 5.68 H Sodium 133.8 L Chloride 96 L AST 72 H Urine Protein 100 H Urine Ketones 20 H Urine Blood MODERATE H - Diagnostic Test Radiology reviewed: Image reviewed, Reports reviewed Radiology results interpreted by me: 04/09/20 18:26 Chest X-Ray 04/09/20 14:49 IMPRESSION: In the appropriate clinical setting, findings are consistent with developing multi lobar pneumonia. Discharge - Discharge Clinical Impression: COVID-19, Multilobar lung infiltrate Condition: Stable Disposition: ADMITTED INPATIENT Admitting Provider: Iron Valdivia covering Unit Admitted: IMCU Referrals: BRYAN DE LEÓN MD [Primary Care Provider] - Follow up as needed
[2020-04-09] MEDS ORDERED: ACETAMINOPHEN 325 MG TABLET PO PRN (19:08)
[2020-04-09 19:35] LABS: FIBRINOGEN 568 mg/dL (209-497); INTERNATIONAL RATION (INR) 1.03; PARTIAL THROMBOPLASTIN TIME 34.3 SEC (23.5-35.8); PROTHROMBIN TIME 13.7 SEC (11.4-15.4)
[2020-04-09 19:38] LABS: D-DIMER 1.29 ug/mL (0.00-0.50)
[2020-04-09 20:13] LABS: A TYPE INFLUENZA AG NEGATIVE (NEGATIVE); B INFLUENZA AG NEGATIVE (NEGATIVE)
[2020-04-09 20:15] LABS: C-REACTIVE PROTEIN 27.1 mg/L (<10.0)
[2020-04-09] MEDS: ZINC SULFATE 220 MG CAPSULE PO SCH (20:21)
[2020-04-09] MEDS: ENOXAPARIN SODIUM INJ 40 MG/0.4 ML DISP.SYRIN SUBCUT SCH (20:21)
[2020-04-09] MEDS ORDERED: DEXAMETHASONE SOD PHOS INJ 10 MG/1 ML VIAL IV SCH (22:00)
[2020-04-09] MEDS: AZITHROMYCIN 250 MG TABLET PO SCH (22:22)
--- NOTE | 2020-04-09 23:59 | EKG REPORT ---
SEVERITY:- OTHERWISE NORMAL ECG - SINUS TACHYCARDIA LOW VOLTAGE IN FRONTAL LEADS : Confirmed by: Jessica Deluna 09-Apr-2020 23:58:45
[2020-04-10 06:57] LABS: ABSOLUTE LYMPHOCYTES (AUTO) 0.4 10^3/uL (0.5-4.7); ABSOLUTE MONOCYTES (AUTO) 0.1 10^3/uL (0.1-1.4); ABSOLUTE NEUT (AUTO) 2.8 10^3/uL (1.7-8.2); BASOPHILS % (AUTO) 0.2 % (0-2); HEMATOCRIT 44.2 % (37.9-51.0); MEAN CORPUSCULAR VOLUME 83 fl (80-97); MONOCYTES % (AUTO) 4.4 % (3-13); PLATELET COUNT 154 10^3/uL (150-450); RED BLOOD COUNT 5.36 10^6/uL (4.35-5.55); RED CELL DISTRIBUTION WIDTH 14.1 % (11.5-14.0); SEGMENTED NEUTROPHILS % (AUTO) 82.4 % (42-78); TOTAL CELLS COUNTED % (AUTO) 100 %; WHITE BLOOD COUNT 3.3 10^3/uL (4.0-10.5)
[2020-04-10 07:09] LABS: ALBUMIN 3.5 g/dL (3.5-5.0); ALKALINE PHOSPHATASE 46 U/L (38-126); ANION GAP 9 (5-19); ASPARTATE AMINO TRANSFERASE 64 U/L (17-59); BILIRUBIN,DIRECT 0.3 mg/dL (0.0-0.4); BLOOD UREA NITROGEN 15 mg/dL (7-20); CALCIUM 8.8 mg/dL (8.4-10.2); CARBON DIOXIDE 26 mmol/L (22-30); CHLORIDE 99 mmol/L (98-107); GLUCOSE 157 mg/dL (75-110); POTASSIUM 4.4 mmol/L (3.6-5.0); TOTAL PROTEIN 6.3 g/dL (6.3-8.2)
--- NOTE | 2020-04-10 08:45 | PDOC H&P ---
History of Present Illness Admission Date/PCP: 04/09/20 18:55 BRYAN DE LEÓN MD Patient complains of: Cough History of Present Illness: JUANITA GARCIA is a 84 year old male This 84-year-old male with a history of the COPD hyperlipidemia hypertension's erectile dysfunctions recently his diagnosed with the Covid started the symptoms with a cough congestions and the fever and some shortness of the breath for the last 1 week getting more worse In the emergency department patient's chest x-ray consistent with the pneumonia and the patient at this point a rapid Covid test was done was positive His is in the same room which is also Covid positive Patient's denied any chest pain denied any shortness of the breath currently on the room air Patient is receiving the Zithromax and IV Solu-Medrol Is currently treated with the Covid protocol Past Medical History Cardiac Medical History: Reports: Coronary Artery Disease - HIGH CHOLESTEROL, Hyperlipidema Denies: Congestive Heart Failure, Myocardial Infarction, Hypertension Pulmonary Medical History: Reports: Chronic Obstructive Pulmonary Disease (COPD) Denies: Asthma, Bronchitis, Pneumonia, Tuberculosis Neurological Medical History: Denies: Seizures Renal/ Medical History: Denies: End Stage Renal Disease GI Medical History: Denies: Cirrhosis, Gastroesophageal Reflux Disease, Hepatitis, Hiatal Hernia Musculoskeltal Medical History: Denies: Arthritis Psychiatric Medical History: Denies: Bipolar Disorder, Depression Hematology: Denies: Anemia, Sickle Cell Disease, Bleeding Tendencies Past Surgical History Past Surgical History: Reports: Appendectomy, Other - Penile implant Denies: Pacemaker Social History Information Source: Patient Smoking Status: Former Smoker Electronic Cigarette use?: No Last Time Smoked: 1985 Frequency of Alcohol Use: None Hx Recreational Drug Use: No Drugs: None Hx Prescription Drug Abuse: No Family History Family History: Reviewed & Not Pertinent Parental Family History Reviewed: Yes Children Family History Reviewed: Yes Sibling(s) Family History Reviewed.: Yes Medication/Allergy Home Medications: Acyclovir [Acyclovir 400 mg Tablet] 400 mg PO DAILY 07/14/16 Aspirin [Aspirin 81 mg Chewable Tablet] 81 mg PO DAILY 07/14/16 Ezetimibe [Zetia] 10 mg PO DAILY 07/14/16 Sildenafil Citrate [Viagra] 100 mg PO DAILYP PRN 07/14/16 Allergies/Adverse Reactions: Penicillins Allergy (Intermediate, Verified 04/09/20 16:49) Hives Review of Systems Constitutional: PRESENT: fever(s). ABSENT: chills, headache(s), weight gain, weight loss Eyes: ABSENT: visual disturbances Ears: ABSENT: hearing changes Cardiovascular: ABSENT: chest pain, dyspnea on exertion, edema, orthropnea, palpitations Respiratory: PRESENT: cough, dyspnea. ABSENT: hemoptysis Gastrointestinal: ABSENT: abdominal pain, constipation, diarrhea, hematemesis, hematochezia, nausea, vomiting Genitourinary: ABSENT: dysuria, hematuria Musculoskeletal: ABSENT: joint swelling Integumentary: ABSENT: rash, wounds Neurological: ABSENT: abnormal gait, abnormal speech, confusion, dizziness, focal weakness, syncope Psychiatric: ABSENT: anxiety, depression, homidical ideation, suicidal ideation Endocrine: ABSENT: cold intolerance, heat intolerance, menstrual abnormalities, polydipsia, polyuria Hematologic/Lymphatic: ABSENT: easy bleeding, easy bruising, lymphadenopathy Physical Exam Vital Signs: Temp Pulse Resp BP Pulse Ox 97.5 F 81 18 131/82 H 94 04/10/20 03:06 04/10/20 07:00 04/10/20 03:06 04/10/20 03:06 04/10/20 03:06 Intake & Output 04/09/20 04/10/20 04/11/20 06:59 06:59 06:59 Weight 68.9 kg General appearance: PRESENT: no acute distress, well-developed, well-nourished Head exam: PRESENT: atraumatic, normocephalic Eye exam: PRESENT: conjunctiva pink, EOMI, PERRLA. ABSENT: scleral icterus Ear exam: PRESENT: normal external ear exam Mouth exam: PRESENT: moist, tongue midline Neck exam: PRESENT: full ROM. ABSENT: carotid bruit, JVD, lymphadenopathy, thyromegaly Respiratory exam: PRESENT: clear to auscultation penny Cardiovascular exam: PRESENT: RRR. ABSENT: diastolic murmur, rubs, systolic murmur Pulses: PRESENT: normal dorsalis pedis pul, +2 pedal pulses bilateral Vascular exam: PRESENT: normal capillary refill GI/Abdominal exam: PRESENT: normal bowel sounds, soft. ABSENT: distended, guarding, mass, organolmegaly, rebound, tenderness Rectal exam: PRESENT: deferred Musculoskeletal exam: PRESENT: ambulatory Neurological exam: PRESENT: alert, awake, oriented to person, oriented to place, oriented to time, oriented to situation, CN II-XII grossly intact. ABSENT: motor sensory deficit Psychiatric exam: PRESENT: appropriate affect, normal mood. ABSENT: homicidal ideation, suicidal ideation Skin exam: PRESENT: dry, intact, warm. ABSENT: cyanosis, rash Results Laboratory Results: 04/10/20 06:14 04/10/20 06:14 04/09/20 04/09/20 04/09/20 15:25 15:25 15:25 WBC 4.2 RBC 5.68 H Hgb 15.8 Hct 47.6 MCV 84 MCH 27.8 MCHC 33.2 RDW 13.8 Plt Count 151 Seg Neutrophils % 70.3 Sodium 133.8 L Potassium 4.5 Chloride 96 L Carbon Dioxide 29 Anion Gap 9 BUN 12 Creatinine 1.16 Est GFR ( Amer) > 60 Glucose 95 Calcium 8.6 Ferritin Total Bilirubin 1.0 AST 72 H Alkaline Phosphatase 49 C-Reactive Protein Total Protein 7.0 Albumin 3.8 Urine Color YELLOW Urine Appearance SLIGHTLY-CLOUDY Urine pH 5.0 Ur Specific Pickrell 1.023 Urine Protein 100 H Urine Glucose (UA) NEGATIVE Urine Ketones 20 H Urine Blood MODERATE H Urine Nitrite NEGATIVE Ur Leukocyte Esterase NEGATIVE Urine WBC (Auto) 2 Urine RBC (Auto) 1 04/09/20 04/10/20 04/10/20 19:40 06:14 06:14 WBC 3.3 L RBC 5.36 Hgb 15.0 Hct 44.2 MCV 83 MCH 28.0 MCHC 34.0 RDW 14.1 H Plt Count 154 Seg Neutrophils % 82.4 H Sodium 134.0 L Potassium 4.4 Chloride 99 Carbon Dioxide 26 Anion Gap 9 BUN 15 Creatinine 0.84 Est GFR ( Amer) > 60 Glucose 157 H Calcium 8.8 Ferritin 462.00 Total Bilirubin 1.0 AST 64 H Alkaline Phosphatase 46 C-Reactive Protein 27.1 H Total Protein 6.3 Albumin 3.5 Urine Color Urine Appearance Urine pH Ur Specific Pickrell Urine Protein Urine Glucose (UA) Urine Ketones Urine Blood Urine Nitrite Ur Leukocyte Esterase Urine WBC (Auto) Urine RBC (Auto) 04/09/20 04/09/20 04/09/20 15:25 19:40 19:40 Creatine Kinase 368 H Troponin I 0.015 0.013 Impressions: Chest X-Ray 04/09/20 14:49 IMPRESSION: In the appropriate clinical setting, findings are consistent with developing multi lobar pneumonia. Assessment & Plan - Diagnosis (1) COVID-19 Is this a current diagnosis for this admission?: Yes Plan: Continues the dexamethasone Zithromax Start the antiviral drugs Supportive treatments (2) Multilobar lung infiltrate Is this a current diagnosis for this admission?: Yes Plan: Continues to Zithromax also add the doxycycline (3) Chronic obstructive pulmonary disease Qualifiers: COPD type: chronic bronchitis Is this a current diagnosis for this admission?: Yes Plan: Continues to Combivent - Time Time Spent: 30 to 50 Minutes Medications reviewed and adjusted accordingly: Yes Anticipated Discharge Disposition: Home, Self Care Anticipated Discharge Timeframe: within 72 hours - Inpatient Certification Based on my medical assessment, after consideration of the patient's comorbidities, presenting symptoms, or acuity I expect that the services needed warrant INPATIENT care.: Yes I certify that my determination is in accordance with my understanding of Medicare's requirements for reasonable and necessary INPATIENT services [42 CFR 412.3e].: Yes Medical Necessity: Significant Comorbidiites Make Outpatient Treatment Too Risky, Need Close Monitoring Due to Risk of Patient Decompensation, Need For IV Fluids, Need for IV Antibiotics 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
[2020-04-10] MEDS ORDERED: ALBUTEROL SULFATE HFA (90 MCG/PUFF) 8 GM MDI IH PRN (09:13)
[2020-04-10] MEDS: ENOXAPARIN SODIUM INJ 40 MG/0.4 ML DISP.SYRIN SUBCUT SCH (10:36)
[2020-04-10] MEDS: ZINC SULFATE 220 MG CAPSULE PO SCH (10:39)
[2020-04-10] MEDS: SULFAMETHOXAZOLE/TRIMETHOPRIM 800-160 MG TABLET PO SCH ×2 (10:39→21:35)
[2020-04-10] MEDS ORDERED: REMDESIVIR (EUA) 200 MG in NORMAL SALINE 250 ML IV ONE (12:00)
--- NOTE | 2020-04-10 16:33 | RADIOLOGY REPORT (SQ) ---
EXAM DESCRIPTION: CTA CHEST IMAGES COMPLETED DATE/TIME: 04/10/2020 2:52 pm REASON FOR STUDY: Pneumonia COMPARISON: None. TECHNIQUE: CT scan of the chest performed using helical scanning technique with dynamic intravenous contrast injection. Images reviewed with lung, soft tissue and bone windows. Reconstructed coronal and sagittal MPR images reviewed. Additional 3 dimensional post-processing performed to develop Maximal Intensity Projection images (VA P). All images stored on PACS. All CT scanners at this facility use dose modulation, iterative reconstruction, and/or weight based d osing when appropriate to reduce radiation dose to as low as reasonably achievable (ALARA). [facility]: Dose Right [facility]: CareDose [facility]: Dose Right [facility]: Teradose 4D [facility]: VideoBurst CONTRAST TYPE AND DOSE: contrast/concentration: Isovue 350.00 mmol/ml; Total Contrast Delivered: 65. 0 ml; Total Saline Delivered: 65.0 ml Contrast bolus adequate for pulmonary arteries and aorta. RENAL FUNCTION: BUN 15 creatinine 0.84 RADIATION DOSE: CT Rad equipment meets quality standard of care and radiation dose reduction techniq ues were employed. CTDIvol: 1.9 - 13.2 mGy. DLP: 432 mGy-cm. . LIMITATIONS: None. FINDINGS: LUNGS AND PLEURA: Extensive centrilobular emphysematous changes most prominent in the uppe r lobes but also present in the lower lobes. Mild atelectatic changes in the lung bases. Faintly de fined diffuse ground-glass opacification in the right upper lobe inferiorly and posteriorly. AORTA AND GREAT VESSELS: No aneurysm. No dissection. HEART: No pericardial effusion. No significant coronary artery calcifications. PULMONARY ARTERIES: No emboli visualized in the main pulmonary arteries or the segmental branches. HILAR AND MEDIASTINAL STRUCTURES: No identified masses or abnormal nodes. HARDWARE: None in the chest. UPPER ABDOMEN: No significant findings. Limited exam. THYROID AND OTHER SOFT TISSUES: No masses. No adenopathy. BONES: No acute or significant finding. 3D MIPS: Confirm above findings. OTHER: No other significant finding. IMPRESSION: 1. There is no pulmonary embolus. There is no aortic aneurysm or dissection. 2. Extensive centrilobular emphysema. 3. Faint ground-glass opacification in the right upper lobe may represent chronic interstitial perez e. 4. There are no findings specific for COVID-19 pneumonia. COMMENT: Quality ID # [id number]: Final reports with documentation of one or more dose reduction techniques (e.g., Automated exposure control, adjustment of the mA and/or kV according to patient size, use of iterative reconstruction technique) TECHNICAL DOCUMENTATION: JOB ID: [id number] 2010 [employer]- All Rights Reserved Reading location - IP/workstation name: [email or web address]
[2020-04-10] MEDS: AZITHROMYCIN 250 MG TABLET PO SCH (21:35)
[2020-04-10] MEDS: DEXAMETHASONE SOD PHOSPHATE INJ 4 MG/1 ML VIAL IV SCH (21:35)
[2020-04-11] MEDS: RINGERS SOLUTION,LACTATED 1,000 ML IV PRN ×2 (00:08→08:42)
[2020-04-11] MEDS: PANTOPRAZOLE SODIUM 40 MG TABLET.DR PO SCH (05:37)
[2020-04-11 05:53] LABS: HEMOGLOBIN 14.5 g/dL (13.5-17.0); MEAN CORPUSCULAR HEMOGLOBIN 27.8 pg (27.0-33.4); MEAN CORPUSCULAR HGB CONC 33.8 g/dL (32.0-36.0); MEAN CORPUSCULAR VOLUME 82 fl (80-97); PLATELET COUNT 186 10^3/uL (150-450); RED BLOOD COUNT 5.23 10^6/uL (4.35-5.55); RED CELL DISTRIBUTION WIDTH 13.9 % (11.5-14.0)
[2020-04-11 06:12] LABS: ALBUMIN 3.3 g/dL (3.5-5.0); ALKALINE PHOSPHATASE 44 U/L (38-126); ANION GAP 10 (5-19); ASPARTATE AMINO TRANSFERASE 50 U/L (17-59); BILIRUBIN,DIRECT 0.1 mg/dL (0.0-0.4); BILIRUBIN,TOTAL 0.6 mg/dL (0.2-1.3); BLOOD UREA NITROGEN 14 mg/dL (7-20); CALCIUM 8.8 mg/dL (8.4-10.2); CARBON DIOXIDE 24 mmol/L (22-30); CHLORIDE 100 mmol/L (98-107); GLUCOSE 132 mg/dL (75-110); POTASSIUM 4.4 mmol/L (3.6-5.0); TOTAL PROTEIN 6.4 g/dL (6.3-8.2)
[2020-04-11 06:46] LABS: WHITE BLOOD COUNT 8.2 10^3/uL (4.0-10.5)
[2020-04-11 06:49] LABS: ABSOLUTE LYMPHOCYTES# (MANUAL) 0.4 10^3/uL (0.5-4.7); ABSOLUTE MONOCYTES # (MANUAL) 0.2 10^3/uL (0.1-1.4); BASOPHILS % (MANUAL) 0 % (0-2); EOSINOPHILS % (MANUAL) 0 % (0-6); LYMPHOCYTES % (MANUAL) 5 % (13-45); MONOCYTES % (MANUAL) 3 % (3-13); SEGMENTED NEUTROPHILS % (MAN) 92 % (42-78); TOTAL CELLS COUNTED 100
[2020-04-11 06:50] LABS: BURR CELLS 1+; PLATELET COMMENT ADEQUATE; POIKILOCYTOSIS 1+
[2020-04-11] MEDS: SULFAMETHOXAZOLE/TRIMETHOPRIM 800-160 MG TABLET PO SCH ×2 (09:23→22:17)
[2020-04-11] MEDS: ZINC SULFATE 220 MG CAPSULE PO SCH (09:23)
[2020-04-11] MEDS: ENOXAPARIN SODIUM INJ 40 MG/0.4 ML DISP.SYRIN SUBCUT SCH (09:24)
--- NOTE | 2020-04-11 09:33 | PDOC PROGRESS REPORT ---
Subjective Date:: 04/11/20 Subjective:: Patient is currently doing much better no need for any oxygens no chest pain no short of breath CT angiogram consistent with emphysema No pulmonary embolism Reason For Visit: COVID 19,MULTILOBAR INFILTRATE Physical Exam Vital Signs: Temp Pulse Resp BP Pulse Ox 97.8 F 91 20 136/86 H 97 04/11/20 08:53 04/11/20 08:27 04/11/20 08:27 04/11/20 08:27 04/11/20 08:27 Intake & Output 04/10/20 04/11/20 04/12/20 06:59 06:59 06:59 Intake Total 850 428 Balance 850 428 Weight 68.9 kg 70.2 kg General appearance: PRESENT: no acute distress, well-developed, well-nourished Head exam: PRESENT: atraumatic, normocephalic Eye exam: PRESENT: conjunctiva pink, EOMI, PERRLA. ABSENT: scleral icterus Ear exam: PRESENT: normal external ear exam Mouth exam: PRESENT: moist, tongue midline Neck exam: PRESENT: full ROM. ABSENT: carotid bruit, JVD, lymphadenopathy, thyromegaly Respiratory exam: PRESENT: clear to auscultation penny Cardiovascular exam: PRESENT: RRR. ABSENT: diastolic murmur, rubs, systolic murmur Pulses: PRESENT: normal dorsalis pedis pul, +2 pedal pulses bilateral Vascular exam: PRESENT: normal capillary refill GI/Abdominal exam: PRESENT: normal bowel sounds, soft. ABSENT: distended, guarding, mass, organolmegaly, rebound, tenderness Rectal exam: PRESENT: deferred Musculoskeletal exam: PRESENT: ambulatory Neurological exam: PRESENT: alert, awake, oriented to person, oriented to place, oriented to time, oriented to situation, CN II-XII grossly intact. ABSENT: motor sensory deficit Psychiatric exam: PRESENT: appropriate affect, normal mood. ABSENT: homicidal ideation, suicidal ideation Skin exam: PRESENT: dry, intact, warm. ABSENT: cyanosis, rash Results Laboratory Results: 04/11/20 05:16 04/11/20 05:16 04/11/20 04/11/20 05:16 05:16 WBC 8.2 D RBC 5.23 Hgb 14.5 Hct 43.0 MCV 82 MCH 27.8 MCHC 33.8 RDW 13.9 Plt Count 186 Seg Neutrophils % Not Reportable Sodium 133.9 L Potassium 4.4 Chloride 100 Carbon Dioxide 24 Anion Gap 10 BUN 14 Creatinine 0.80 Est GFR ( Amer) > 60 Glucose 132 H Calcium 8.8 Total Bilirubin 0.6 AST 50 Alkaline Phosphatase 44 Total Protein 6.4 Albumin 3.3 L 04/09/20 04/09/20 04/09/20 15:25 19:40 19:40 Creatine Kinase 368 H Troponin I 0.015 0.013 Impressions: Chest X-Ray 04/09/20 14:49 IMPRESSION: In the appropriate clinical setting, findings are consistent with developing multi lobar pneumonia. Chest/Abdomen CTA 04/10/20 00:00 IMPRESSION: 1. There is no pulmonary embolus. There is no aortic aneurysm or dissection. 2. Extensive centrilobular emphysema. 3. Faint ground-glass opacification in the right upper lobe may represent chronic interstitial change. 4. There are no findings specific for COVID-19 pneumonia. Assessment & Plan - Diagnosis (1) COVID-19 Is this a current diagnosis for this admission?: Yes (2) Multilobar lung infiltrate Is this a current diagnosis for this admission?: Yes (3) Chronic obstructive pulmonary disease Qualifiers: COPD type: chronic bronchitis Is this a current diagnosis for this admission?: Yes - Time Time Spent with patient: 15-24 minutes Level of Care: IMCU Medications reviewed and adjusted accordingly: Yes Anticipated discharge: Home Anticipated DC Timeframe: within 48 hours - Plan Summary Plan Summary: Patient is currently doing much better CT scan looks all stable I think patient should go home within the next 24 to 48 hours but patient really worry about his currently stay with him next bed
[2020-04-11] MEDS: REMDESIVIR (EUA) 100 MG in NORMAL SALINE 250 ML IV SCH (10:42)
[2020-04-11] MEDS: AZITHROMYCIN 250 MG TABLET PO SCH (22:17)
[2020-04-11] MEDS: DEXAMETHASONE SOD PHOSPHATE INJ 4 MG/1 ML VIAL IV SCH (22:17)
[2020-04-12 05:44] LABS: ABSOLUTE LYMPHOCYTES (AUTO) 0.3 10^3/uL (0.5-4.7); ABSOLUTE MONOCYTES (AUTO) 0.3 10^3/uL (0.1-1.4); BASOPHILS % (AUTO) 0.4 % (0-2); HEMATOCRIT 43.6 % (37.9-51.0); HEMOGLOBIN 14.6 g/dL (13.5-17.0); LYMPHOCYTES % (AUTO) 5.2 % (13-45); MEAN CORPUSCULAR HEMOGLOBIN 27.4 pg (27.0-33.4); MEAN CORPUSCULAR HGB CONC 33.5 g/dL (32.0-36.0); MEAN CORPUSCULAR VOLUME 82 fl (80-97); MONOCYTES % (AUTO) 4.2 % (3-13); PLATELET COUNT 216 10^3/uL (150-450); RED BLOOD COUNT 5.32 10^6/uL (4.35-5.55); RED CELL DISTRIBUTION WIDTH 13.9 % (11.5-14.0); SEGMENTED NEUTROPHILS % (AUTO) 90.2 % (42-78); TOTAL CELLS COUNTED % (AUTO) 100 %; WHITE BLOOD COUNT 6.6 10^3/uL (4.0-10.5)
[2020-04-12] MEDS: PANTOPRAZOLE SODIUM 40 MG TABLET.DR PO SCH (06:01)
[2020-04-12 06:14] LABS: ALBUMIN 3.3 g/dL (3.5-5.0); ALKALINE PHOSPHATASE 40 U/L (38-126); ANION GAP 9 (5-19); ASPARTATE AMINO TRANSFERASE 48 U/L (17-59); BILIRUBIN,DIRECT 0.2 mg/dL (0.0-0.4); BILIRUBIN,TOTAL 0.6 mg/dL (0.2-1.3); BLOOD UREA NITROGEN 17 mg/dL (7-20); CALCIUM 8.7 mg/dL (8.4-10.2); CARBON DIOXIDE 23 mmol/L (22-30); CHLORIDE 102 mmol/L (98-107); GLUCOSE 133 mg/dL (75-110); TOTAL PROTEIN 6.4 g/dL (6.3-8.2)
--- NOTE | 2020-04-12 08:44 | PDOC PROGRESS REPORT ---
Subjective Date:: 04/12/20 Subjective:: Patient is currently doing much better no need for any oxygens no chest pain no short of breath CT angiogram consistent with emphysema No pulmonary embolism Reason For Visit: COVID 19,MULTILOBAR INFILTRATE Physical Exam Vital Signs: Temp Pulse Resp BP Pulse Ox 97.7 F 80 20 137/80 H 92 04/12/20 08:21 04/12/20 08:21 04/12/20 08:21 04/12/20 08:21 04/12/20 08:21 Intake & Output 04/11/20 04/12/20 04/13/20 06:59 06:59 06:59 Intake Total 850 1918 Balance 850 1918 Weight 70.2 kg 71.4 kg General appearance: PRESENT: no acute distress, well-developed, well-nourished Head exam: PRESENT: atraumatic, normocephalic Eye exam: PRESENT: conjunctiva pink, EOMI, PERRLA. ABSENT: scleral icterus Ear exam: PRESENT: normal external ear exam Mouth exam: PRESENT: moist, tongue midline Neck exam: PRESENT: full ROM. ABSENT: carotid bruit, JVD, lymphadenopathy, thyromegaly Respiratory exam: PRESENT: clear to auscultation penny Cardiovascular exam: PRESENT: RRR. ABSENT: diastolic murmur, rubs, systolic murmur Pulses: PRESENT: normal dorsalis pedis pul, +2 pedal pulses bilateral Vascular exam: PRESENT: normal capillary refill GI/Abdominal exam: PRESENT: normal bowel sounds, soft. ABSENT: distended, guarding, mass, organolmegaly, rebound, tenderness Rectal exam: PRESENT: deferred Neurological exam: PRESENT: alert, awake, oriented to person, oriented to place, oriented to time, oriented to situation, CN II-XII grossly intact. ABSENT: motor sensory deficit Psychiatric exam: PRESENT: appropriate affect, normal mood. ABSENT: homicidal ideation, suicidal ideation Skin exam: PRESENT: dry, intact, warm. ABSENT: cyanosis, rash Results Laboratory Results: 04/12/20 05:23 04/12/20 05:23 04/12/20 04/12/20 05:23 05:23 WBC 6.6 RBC 5.32 Hgb 14.6 Hct 43.6 MCV 82 MCH 27.4 MCHC 33.5 RDW 13.9 Plt Count 216 Seg Neutrophils % 90.2 H Sodium 134.4 L Potassium 5.0 Chloride 102 Carbon Dioxide 23 Anion Gap 9 BUN 17 Creatinine 0.84 Est GFR ( Amer) > 60 Glucose 133 H Calcium 8.7 Total Bilirubin 0.6 AST 48 Alkaline Phosphatase 40 Total Protein 6.4 Albumin 3.3 L 04/09/20 04/09/20 04/09/20 15:25 19:40 19:40 Creatine Kinase 368 H Troponin I 0.015 0.013 Impressions: Chest X-Ray 04/09/20 14:49 IMPRESSION: In the appropriate clinical setting, findings are consistent with developing multi lobar pneumonia. Chest/Abdomen CTA 04/10/20 00:00 IMPRESSION: 1. There is no pulmonary embolus. There is no aortic aneurysm or dissection. 2. Extensive centrilobular emphysema. 3. Faint ground-glass opacification in the right upper lobe may represent chronic interstitial change. 4. There are no findings specific for COVID-19 pneumonia. Assessment & Plan - Diagnosis (1) COVID-19 Is this a current diagnosis for this admission?: Yes (2) Multilobar lung infiltrate Is this a current diagnosis for this admission?: Yes (3) Chronic obstructive pulmonary disease Qualifiers: COPD type: chronic bronchitis Is this a current diagnosis for this admission?: Yes - Time Time Spent with patient: 15-24 minutes Level of Care: IMCU Medications reviewed and adjusted accordingly: Yes Anticipated discharge: Home Anticipated DC Timeframe: within 48 hours - Plan Summary Plan Summary: Patient is currently doing very well hopefully will discharge in the next 24 to 48 hours
[2020-04-12] MEDS: ENOXAPARIN SODIUM INJ 40 MG/0.4 ML DISP.SYRIN SUBCUT SCH (09:47)
[2020-04-12] MEDS: SULFAMETHOXAZOLE/TRIMETHOPRIM 800-160 MG TABLET PO SCH ×2 (09:47→22:13)
[2020-04-12] MEDS: ZINC SULFATE 220 MG CAPSULE PO SCH (09:47)
[2020-04-12] MEDS: MULTIVITAMIN TABLET PO SCH (09:47)
[2020-04-12] MEDS: REMDESIVIR (EUA) 100 MG in NORMAL SALINE 250 ML IV SCH (11:22)
[2020-04-12] MEDS: DEXAMETHASONE SOD PHOSPHATE INJ 4 MG/1 ML VIAL IV SCH (22:13)
[2020-04-12] MEDS: AZITHROMYCIN 250 MG TABLET PO SCH (22:13)
[2020-04-13] MEDS: PANTOPRAZOLE SODIUM 40 MG TABLET.DR PO SCH (05:10)
[2020-04-13 05:22] LABS: ABSOLUTE LYMPHOCYTES (AUTO) 0.4 10^3/uL (0.5-4.7); ABSOLUTE MONOCYTES (AUTO) 0.3 10^3/uL (0.1-1.4); ABSOLUTE NEUT (AUTO) 6.2 10^3/uL (1.7-8.2); BASOPHILS % (AUTO) 0.3 % (0-2); HEMOGLOBIN 14.8 g/dL (13.5-17.0); LYMPHOCYTES % (AUTO) 6.2 % (13-45); MEAN CORPUSCULAR HEMOGLOBIN 27.5 pg (27.0-33.4); MEAN CORPUSCULAR HGB CONC 33.5 g/dL (32.0-36.0); MEAN CORPUSCULAR VOLUME 82 fl (80-97); MONOCYTES % (AUTO) 4.3 % (3-13); PLATELET COUNT 255 10^3/uL (150-450); RED BLOOD COUNT 5.36 10^6/uL (4.35-5.55); RED CELL DISTRIBUTION WIDTH 14.3 % (11.5-14.0); SEGMENTED NEUTROPHILS % (AUTO) 89.2 % (42-78); TOTAL CELLS COUNTED % (AUTO) 100 %
[2020-04-13 05:42] LABS: ALBUMIN 3.4 g/dL (3.5-5.0); ALKALINE PHOSPHATASE 44 U/L (38-126); ANION GAP 10 (5-19); ASPARTATE AMINO TRANSFERASE 47 U/L (17-59); BILIRUBIN,DIRECT 0.2 mg/dL (0.0-0.4); BILIRUBIN,TOTAL 0.7 mg/dL (0.2-1.3); BLOOD UREA NITROGEN 18 mg/dL (7-20); CALCIUM 8.8 mg/dL (8.4-10.2); CARBON DIOXIDE 23 mmol/L (22-30); CHLORIDE 100 mmol/L (98-107); GLUCOSE 137 mg/dL (75-110); POTASSIUM 5.1 mmol/L (3.6-5.0); TOTAL PROTEIN 6.4 g/dL (6.3-8.2)
[2020-04-13] MEDS: ENOXAPARIN SODIUM INJ 40 MG/0.4 ML DISP.SYRIN SUBCUT SCH (09:49)
[2020-04-13] MEDS: SULFAMETHOXAZOLE/TRIMETHOPRIM 800-160 MG TABLET PO SCH ×2 (09:49→21:28)
[2020-04-13] MEDS: ZINC SULFATE 220 MG CAPSULE PO SCH (09:49)
[2020-04-13] MEDS: MULTIVITAMIN TABLET PO SCH (09:49)
[2020-04-13] MEDS: REMDESIVIR (EUA) 100 MG in NORMAL SALINE 250 ML IV SCH (10:09)
--- NOTE | 2020-04-13 10:36 | PDOC PROGRESS REPORT ---
Subjective Date:: 04/13/20 Subjective:: Patient is currently doing much better no need for any oxygens no chest pain no short of breath CT angiogram consistent with emphysema No pulmonary embolism Reason For Visit: COVID 19,MULTILOBAR INFILTRATE Physical Exam Vital Signs: Temp Pulse Resp BP Pulse Ox 98.3 F 90 18 130/84 H 95 04/13/20 07:50 04/13/20 07:21 04/13/20 07:21 04/13/20 07:21 04/13/20 07:21 Intake & Output 04/12/20 04/13/20 04/14/20 06:59 06:59 06:59 Intake Total 1917 852 Balance 1917 852 Weight 71.4 kg 71.4 kg Results Laboratory Results: 04/13/20 04:55 04/13/20 04:55 04/13/20 04/13/20 04:55 04:55 WBC 7.0 RBC 5.36 Hgb 14.8 Hct 44.0 MCV 82 MCH 27.5 MCHC 33.5 RDW 14.3 H Plt Count 255 Seg Neutrophils % 89.2 H Sodium 132.7 L Potassium 5.1 H Chloride 100 Carbon Dioxide 23 Anion Gap 10 BUN 18 Creatinine 0.84 Est GFR ( Amer) > 60 Glucose 137 H Calcium 8.8 Total Bilirubin 0.7 AST 47 Alkaline Phosphatase 44 Total Protein 6.4 Albumin 3.4 L 04/09/20 19:40 Throat Throat Culture - Final NORMAL NATASHA 04/09/20 04/09/20 04/09/20 15:25 19:40 19:40 Creatine Kinase 368 H Troponin I 0.015 0.013 Impressions: Chest X-Ray 04/09/20 14:49 IMPRESSION: In the appropriate clinical setting, findings are consistent with developing multi lobar pneumonia. Chest/Abdomen CTA 04/10/20 00:00 IMPRESSION: 1. There is no pulmonary embolus. There is no aortic aneurysm or dissection. 2. Extensive centrilobular emphysema. 3. Faint ground-glass opacification in the right upper lobe may represent chronic interstitial change. 4. There are no findings specific for COVID-19 pneumonia. Assessment & Plan - Diagnosis (1) COVID-19 Is this a current diagnosis for this admission?: Yes (2) Multilobar lung infiltrate Is this a current diagnosis for this admission?: Yes (3) Chronic obstructive pulmonary disease Qualifiers: COPD type: chronic bronchitis Is this a current diagnosis for this admission?: Yes - Time Time Spent with patient: Less than 15 minutes Level of Care: IMCU Medications reviewed and adjusted accordingly: Yes Anticipated discharge: Home Anticipated DC Timeframe: within 24 hours
[2020-04-13] MEDS: DEXAMETHASONE SOD PHOSPHATE INJ 4 MG/1 ML VIAL IV SCH (21:28)
[2020-04-13] MEDS: AZITHROMYCIN 250 MG TABLET PO SCH (21:28)
[2020-04-14] MEDS: PANTOPRAZOLE SODIUM 40 MG TABLET.DR PO SCH (05:09)
[2020-04-14 05:24] LABS: ABSOLUTE LYMPHOCYTES (AUTO) 0.5 10^3/uL (0.5-4.7); ABSOLUTE MONOCYTES (AUTO) 0.2 10^3/uL (0.1-1.4); ABSOLUTE NEUT (AUTO) 4.7 10^3/uL (1.7-8.2); BASOPHILS % (AUTO) 0.1 % (0-2); EOSINOPHILS % (AUTO) 0.1 % (0-6); HEMATOCRIT 45.2 % (37.9-51.0); HEMOGLOBIN 15.3 g/dL (13.5-17.0); LYMPHOCYTES % (AUTO) 8.5 % (13-45); MEAN CORPUSCULAR HEMOGLOBIN 27.8 pg (27.0-33.4); MEAN CORPUSCULAR HGB CONC 33.9 g/dL (32.0-36.0); MEAN CORPUSCULAR VOLUME 82 fl (80-97); MONOCYTES % (AUTO) 4.5 % (3-13); PLATELET COUNT 307 10^3/uL (150-450); RED CELL DISTRIBUTION WIDTH 14.1 % (11.5-14.0); SEGMENTED NEUTROPHILS % (AUTO) 86.8 % (42-78); TOTAL CELLS COUNTED % (AUTO) 100 %; WHITE BLOOD COUNT 5.4 10^3/uL (4.0-10.5)
[2020-04-14 06:07] LABS: ALBUMIN 3.6 g/dL (3.5-5.0); ALKALINE PHOSPHATASE 48 U/L (38-126); ANION GAP 11 (5-19); ASPARTATE AMINO TRANSFERASE 44 U/L (17-59); BILIRUBIN,DIRECT 0.1 mg/dL (0.0-0.4); BILIRUBIN,TOTAL 0.6 mg/dL (0.2-1.3); BLOOD UREA NITROGEN 17 mg/dL (7-20); CALCIUM 8.9 mg/dL (8.4-10.2); CARBON DIOXIDE 21 mmol/L (22-30); CHLORIDE 100 mmol/L (98-107); GLUCOSE 134 mg/dL (75-110); POTASSIUM 5.4 mmol/L (3.6-5.0); TOTAL PROTEIN 6.7 g/dL (6.3-8.2)
[2020-04-14] MEDS ORDERED: SODIUM POLYSTYRENE SULFONATE 15 GM/60 ML PO ONE (10:00)
[2020-04-14] MEDS: REMDESIVIR (EUA) 100 MG in NORMAL SALINE 250 ML IV SCH (10:37)
[2020-04-14] MEDS: SULFAMETHOXAZOLE/TRIMETHOPRIM 800-160 MG TABLET PO SCH (10:37)
[2020-04-14] MEDS: MULTIVITAMIN TABLET PO SCH (10:37)
[2020-04-14] MEDS: ZINC SULFATE 220 MG CAPSULE PO SCH (10:38)
[2020-04-14] MEDS: ENOXAPARIN SODIUM INJ 40 MG/0.4 ML DISP.SYRIN SUBCUT SCH (10:38)
--- NOTE | 2020-04-14 13:01 | PDOC DISCHARGE SUMMARY ---
Impression - Admit/DC Date/PCP Admission Date/Primary Care Provider: 04/09/20 18:55 BRYAN DE LEÓN MD Discharge Date: 04/14/20 - Discharge Diagnosis (1) COVID-19 Is this a current diagnosis for this admission?: Yes (2) Multilobar lung infiltrate Is this a current diagnosis for this admission?: Yes (3) Chronic obstructive pulmonary disease Is this a current diagnosis for this admission?: Yes - Additional Information Discharge Activity: Activity As Tolerated Referrals: BRYAN DE LEÓN MD [Primary Care Provider] - 05/01/20 10:30 am Prescriptions: Dexamethasone 3 mg PO BID #10 tablet Doxycycline Hyclate 100 mg PO BID #20 tablet. Home Medications: Aspirin [Aspirin 81 mg Chewable Tablet] 81 mg PO DAILY 07/14/16 Ezetimibe [Zetia] 10 mg PO DAILY 07/14/16 Atorvastatin Calcium [Lipitor 20 mg Tablet] 20 mg PO QHS 04/10/20 Fluticasone Propionate [Flonase Nasal [place] 50 Mcg/[place] 16 gm] 1 spray NASL DAILY 04/10/20 Montelukast Sodium [Singulair 10 mg Tablet] 10 mg PO DAILY 04/10/20 Tobramycin Sulfate/Dexameth [Tobradex Oph Ointment 3.5 gm] 1 applic OU QPM 04/10/20 Dexamethasone 3 mg PO BID #10 tablet 04/14/20 Doxycycline Hyclate 100 mg PO BID #20 tablet. 04/14/20 History of Present Illiness History of Present Illness: JUANITA GARCIA is a 84 year old male This 84-year-old male with a history of the COPD hyperlipidemia hypertension's erectile dysfunctions recently his diagnosed with the Covid started the symptoms with a cough congestions and the fever and some shortness of the breath for the last 1 week getting more worse In the emergency department patient's chest x-ray consistent with the pneumonia and the patient at this point a rapid Covid test was done was positive His is in the same room which is also Covid positive Patient's denied any chest pain denied any shortness of the breath currently on the room air Patient is receiving the Zithromax and IV Solu-Medrol Is currently treated with the Covid protocol Hospital Course Hospital Course: This is a 84-year-old male presenting the emergency department with a cough-like symptoms and diagnosed with the Covid pneumonia Patient's is also positive with the Covid We will start with the IV Antiviral drugs and IV dexamethasone and a Zithromax Patient also give a Bactrim Patient CT angiogram was negative for any PE Patient is doing very well patient does not require any oxygen's patient have a significant emphysema At this point patient was discharged with the oral steroid and oral doxycycline and inhaler Patient's follow in office in a 1 week we will call the patient on a Friday His potassium is slightly elevated will give a Kayexalate dose discussed with the patient's low potassium diet Discussed with the patient's to continue to monitor any increasing any shortness of the breath any fever call the EMS Physical Exam Vital Signs: Temp Pulse Resp BP Pulse Ox 97.7 F 75 18 126/83 H 94 04/14/20 11:27 04/14/20 11:27 04/14/20 11:27 04/14/20 11:27 04/14/20 11:27 Intake & Output 04/13/20 04/14/20 04/15/20 06:59 06:59 06:59 Intake Total 852 1160 250 Balance 852 1160 250 Weight 71.4 kg 68.5 kg General appearance: PRESENT: no acute distress, well-developed, well-nourished Head exam: PRESENT: atraumatic, normocephalic Eye exam: PRESENT: conjunctiva pink, EOMI, PERRLA. ABSENT: scleral icterus Ear exam: PRESENT: normal external ear exam Mouth exam: PRESENT: moist, tongue midline Neck exam: ABSENT: carotid bruit, JVD, lymphadenopathy, thyromegaly Respiratory exam: PRESENT: clear to auscultation penny. ABSENT: rales, rhonchi, wheezes Cardiovascular exam: PRESENT: RRR. ABSENT: diastolic murmur, rubs, systolic murmur Pulses: PRESENT: normal dorsalis pedis pul Vascular exam: PRESENT: normal capillary refill GI/Abdominal exam: PRESENT: normal bowel sounds, soft. ABSENT: distended, guarding, mass, organolmegaly, rebound, tenderness Rectal exam: PRESENT: deferred Extremities exam: PRESENT: full ROM. ABSENT: calf tenderness, clubbing, pedal edema Neurological exam: PRESENT: alert, awake, oriented to person, oriented to place, oriented to time, oriented to situation, CN II-XII grossly intact. ABSENT: motor sensory deficit Psychiatric exam: PRESENT: appropriate affect, normal mood. ABSENT: homicidal ideation, suicidal ideation Skin exam: PRESENT: dry, intact, warm. ABSENT: cyanosis, rash Results Laboratory Results: WBC 5.4 10^3/uL (4.0-10.5) 04/14/20 05:00 RBC 5.50 10^6/uL (4.35-5.55) 04/14/20 05:00 Hgb 15.3 g/dL (13.5-17.0) 04/14/20 05:00 Hct 45.2 % (37.9-51.0) 04/14/20 05:00 MCV 82 fl (80-97) 04/14/20 05:00 MCH 27.8 pg (27.0-33.4) 04/14/20 05:00 MCHC 33.9 g/dL (32.0-36.0) 04/14/20 05:00 RDW 14.1 % (11.5-14.0) H 04/14/20 05:00 Plt Count 307 10^3/uL (150-450) 04/14/20 05:00 Lymph % (Auto) 8.5 % (13-45) L 04/14/20 05:00 [place] % (Auto) 4.5 % (3-13) 04/14/20 05:00 Eos % (Auto) 0.1 % (0-6) 04/14/20 05:00 Baso % (Auto) 0.1 % (0-2) 04/14/20 05:00 Absolute Neuts (auto) 4.7 10^3/uL (1.7-8.2) 04/14/20 05:00 Absolute Lymphs (auto) 0.5 10^3/uL (0.5-4.7) 04/14/20 05:00 Absolute Monos (auto) 0.2 10^3/uL (0.1-1.4) 04/14/20 05:00 Absolute Eos (auto) 0.0 10^3/uL (0.0-0.6) 04/14/20 05:00 Absolute Basos (auto) 0.0 10^3/uL (0.0-0.2) 04/14/20 05:00 Total Counted 100 04/11/20 05:16 Seg Neutrophils % 86.8 % (42-78) H 04/14/20 05:00 Seg Neuts % (Manual) 92 % (42-78) H 04/11/20 05:16 Lymphocytes % (Manual) 5 % (13-45) L 04/11/20 05:16 Monocytes % (Manual) 3 % (3-13) 04/11/20 05:16 Eosinophils % (Manual) 0 % (0-6) 04/11/20 05:16 Basophils % (Manual) 0 % (0-2) 04/11/20 05:16 Abs Neuts (Manual) 7.5 10^3/uL (1.7-8.2) 04/11/20 05:16 Abs Lymphs (Manual) 0.4 10^3/uL (0.5-4.7) L 04/11/20 05:16 Abs Monocytes (Manual) 0.2 10^3/uL (0.1-1.4) 04/11/20 05:16 Absolute Eos (Manual) 0.0 10^3/uL (0.0-0.6) 04/11/20 05:16 Abs Basophils (Manual) 0.0 10^3/uL (0.0-0.2) 04/11/20 05:16 Platelet Comment ADEQUATE 04/11/20 05:16 Poikilocytosis 1+ 04/11/20 05:16 [place] Cells 1+ 04/11/20 05:16 PT 13.7 SEC (11.4-15.4) 04/09/20 15:25 INR 1.03 04/09/20 15:25 APTT 34.3 SEC (23.5-35.8) 04/09/20 15:25 Fibrinogen 568 mg/dL (209-497) H 04/09/20 15:25 D-Dimer 1.29 ug/mL (0.00-0.50) H 04/09/20 15:25 Sodium 131.9 mmol/L (137-145) L 04/14/20 05:00 Potassium 5.4 mmol/L (3.6-5.0) H 04/14/20 05:00 Chloride 100 mmol/L (98-107) 04/14/20 05:00 Carbon Dioxide 21 mmol/L (22-30) L 04/14/20 05:00 Anion Gap 11 (5-19) 04/14/20 05:00 BUN 17 mg/dL (7-20) 04/14/20 05:00 Creatinine 0.84 mg/dL (0.52-1.25) 04/14/20 05:00 Est GFR ( Amer) > 60 (>60) 04/14/20 05:00 Est GFR (MDRD) Non-Af > 60 (>60) 04/14/20 05:00 Glucose 134 mg/dL (75-110) H 04/14/20 05:00 Calcium 8.9 mg/dL (8.4-10.2) 04/14/20 05:00 Ferritin 462.00 ng/mL (17.9-464.0) 04/09/20 19:40 Total Bilirubin 0.6 mg/dL (0.2-1.3) 04/14/20 05:00 Direct Bilirubin 0.1 mg/dL (0.0-0.4) 04/14/20 05:00 Neonat Total Bilirubin Not Reportable 04/14/20 05:00 Neonat Direct Bilirubin Not Reportable 04/14/20 05:00 Neonat Indirect Bili Not Reportable 04/14/20 05:00 AST 44 U/L (17-59) 04/14/20 05:00 ALT 49 U/L (<50) 04/14/20 05:00 Alkaline Phosphatase 48 U/L (38-126) 04/14/20 05:00 Lactate Dehydrogenase 381 U/L (120-246) H 04/09/20 19:40 Creatine Kinase 368 U/L (55-170) H 04/09/20 19:40 Troponin I 0.013 ng/mL 04/09/20 19:40 C-Reactive Protein 27.1 mg/L (<10.0) H 04/09/20 19:40 Total Protein 6.7 g/dL (6.3-8.2) 04/14/20 05:00 Albumin 3.6 g/dL (3.5-5.0) 04/14/20 05:00 Urine Color YELLOW 04/09/20 15:25 Urine Appearance SLIGHTLY-CLOUDY 04/09/20 15:25 Urine pH 5.0 (5.0-9.0) 04/09/20 15:25 Ur Specific [place] 1.023 04/09/20 15:25 Urine Protein 100 mg/dL (NEGATIVE) H 04/09/20 15:25 Urine Glucose (UA) NEGATIVE mg/dL (NEGATIVE) 04/09/20 15:25 Urine Ketones 20 mg/dL (NEGATIVE) H 04/09/20 15:25 Urine Blood MODERATE (NEGATIVE) H 04/09/20 15:25 Urine Nitrite NEGATIVE (NEGATIVE) 04/09/20 15:25 Urine Bilirubin NEGATIVE (NEGATIVE) 04/09/20 15:25 Urine Urobilinogen NEGATIVE mg/dL (<2.0) 04/09/20 15:25 Ur Leukocyte Esterase NEGATIVE (NEGATIVE) 04/09/20 15:25 Urine WBC (Auto) 2 /HPF 04/09/20 15:25 Urine RBC (Auto) 1 /HPF 04/09/20 15:25 Squamous Epi Cells Auto 1 /HPF 04/09/20 15:25 Urine Mucus (Auto) MANY /LPF 04/09/20 15:25 Urine Ascorbic Acid NEGATIVE (NEGATIVE) 04/09/20 15:25 Influenza A (Rapid) NEGATIVE (NEGATIVE) 04/09/20 19:40 Influenza B (Rapid) NEGATIVE (NEGATIVE) 04/09/20 19:40 SARS-CoV-2 (PCR) POSITIVE (NEGATIVE) H 04/09/20 23:20 Group A Strep Rapid NEGATIVE (NEGATIVE) 04/09/20 19:40 04/09/20 04/09/20 15:25 19:40 Troponin I 0.015 0.013 Impressions: Chest X-Ray 04/09/20 14:49 IMPRESSION: In the appropriate clinical setting, findings are consistent with developing multi lobar pneumonia. Chest/Abdomen CTA 04/10/20 00:00 IMPRESSION: 1. There is no pulmonary embolus. There is no aortic aneurysm or dissection. 2. Extensive centrilobular emphysema. 3. Faint ground-glass opacification in the right upper lobe may represent chronic interstitial change. 4. There are no findings specific for COVID-19 pneumonia. Plan Time Spent: Greater than 30 Minutes - Follow in office 1 week Stroke Is this a Stroke Patient?: No Acute Heart Failure Is this a Heart Failure Patient?: No
[2020-04-14 13:25] VITALS: BP 118/76
[2020-04-14 13:53] LABS: ANION GAP 13 (5-19); BLOOD UREA NITROGEN 16 mg/dL (7-20); CALCIUM 8.8 mg/dL (8.4-10.2); CARBON DIOXIDE 21 mmol/L (22-30); CHLORIDE 98 mmol/L (98-107); GLUCOSE 104 mg/dL (75-110); POTASSIUM 5.1 mmol/L (3.6-5.0)
== END 2020-04-14 15:53 | disposition home health service (06) | DRG 177 ==
LOC: ER 14:37 → EH 18:55 → 3W 04-10 00:57
PROVIDERS: ADMIT Family Medicine; ATTEND Family Medicine
PROC: XW033E5 Introduction of Remdesivir Anti-infective into Peripheral Vein, Percutaneous Approach, New Technology Group 5 (ICD-10-PCS; principal; 2020-04-10)
DX: U07.1 COVID-19 (principal); J12.89 Other viral pneumonia; E78.5 Hyperlipidemia, unspecified; I10 Essential (primary) hypertension; N52.9 Male erectile dysfunction, unspecified; J44.9 Chronic obstructive pulmonary disease, unspecified; I25.10 Atherosclerotic heart disease of native coronary artery without angina pectoris; Z96.9 Presence of functional implant, unspecified; Z90.49 Acquired absence of other specified parts of digestive tract; Z87.891 Personal history of nicotine dependence; Z88.0 Allergy status to penicillin
CPT/HCPCS: 36415; 71045; 71250; 71275; 80053; 81001; 82550; 82728; 83615; 84484; 85025; 85379; 85384; 85610; 85730; 86140; 87070; 87635; 87804; 87880; 93005; 93010; 99285; C9803; J1100; J1650; J3490; J7050; J7120

== ENCOUNTER → 2020-05-01 | Outpatient (CLI) | payer MEDICARE, OTHER ==
--- NOTE | 2020-05-01 15:13 | RADIOLOGY REPORT (SQ) ---
EXAM DESCRIPTION: VENOUS BILATERAL LOWER IMAGES COMPLETED DATE/TIME: 05/01/2020 2:58 pm REASON FOR STUDY: SWELLING M79.89 OTHER SPECIFIED SOFT TISSUE DISORDERS COMPARISON: None. TECHNIQUE: Dynamic and static small scale and color images acquired of both lower extremity venous sy stems. Selected spectral images acquired with additional compression and augmentation maneuvers. Imag es stored on PACS. LIMITATIONS: None. FINDINGS: RIGHT LEG COMMON FEMORAL AND FEMORAL: Normal phasicity, compression and augmentation. No visualized echogenic m aterial on small scale. No defects on color images. POPLITEAL: Normal compression and augmentation. No visualized echogenic material on small scale. No de fects on color images. CALF VESSELS: Normal compression and augmentation. No visualized echogenic material on small scale. No defects on color image. GSV AND SSV: Normal compression. No visualized echogenic material on small scale. No defects on color images. ANY DEEP VENOUS INSUFFICIENCY: Not evaluated. ANY EVIDENCE OF POPLITEAL CYST: No. OTHER: No other significant finding. LEFT LEG COMMON FEMORAL AND FEMORAL: Normal phasicity, compression and augmentation. No visualized echogenic m aterial on small scale. No defects on color images. POPLITEAL: Normal compression and augmentation. No visualized echogenic material on small scale. No de fects on color images. CALF VESSELS: Normal compression and augmentation. No visualized echogenic material on small scale. No defects on color images. GSV AND SSV: Normal compression. No visualized echogenic material on small scale. No defects on color images. ANY DEEP VENOUS INSUFFICIENCY: Not evaluated. ANY EVIDENCE POPLITEAL CYST: No. OTHER: No other significant finding. IMPRESSION: NO EVIDENCE DVT OR SVT IN EITHER LEG. TECHNICAL DOCUMENTATION: JOB ID: [id number] 2010 [employer]- All Rights Reserved Reading location - IP/workstation name: [email or web address]
== END ==
LOC: SP 12:47
PROVIDERS: ATTEND Family Medicine
DX: M79.89 Other specified soft tissue disorders (principal)
CPT/HCPCS: 93970